=== PATIENT | male | born 1980 | race African-American/Black ===

== ENCOUNTER 2019-01-11 04:57 | Inpatient (IN) | payer SELFPAY ==
[2019-01-11] VITALS (7 sets, daily range): BP systolic 137–179; BP diastolic 87–101
[~2019-01-11] VITALS: Ht 185.4 cm; Wt 68.7 kg
[2019-01-11] MEDS ORDERED: METO50TA6 PO (09:23)
[2019-01-11] MEDS ORDERED: HYDR-2869 PO (09:23)
[2019-01-11] MEDS ORDERED: NICO1PAT21 TP (09:25)
--- NOTE | 2019-01-11 10:19 | PDOC1 ---
History and Physical Date of Admission Date of Admission DATE: 01/11/19 TIME: 10:18 Identification/Chief Complaint Chief Complaint Abdominal pain Source Source: Caregiver, Patient History of Present Illness History of Present Illness Mr Rowell is a 38 year old male w/ PMHx PCKD,HTN who presents with complaint of abdominal pain. Patient states that he has had severe recurrent left upper abdominal pain over the past 3 days. Was recently released from the hospital 5 days ago after being treated for hypertension and acute pancreatitis that began 2 weeks ago (5 days before he sought medical care). Notes that since his recent hospital stay, he has been getting worsening pain especially towards evening and his left upper quadrant which radiates towards his back. States it feels similar to the pain associated with his previous episode of acute pancreatitis. Cause of pancreatitis not identified a previous visit. Has not had any fever or vomiting. Has been taking Tylenol which has only briefly helped treat his pain symptoms. Has not missed any doses of his blood pressure medication. He did have a reaction to lisinopril with facial swelling on his prior hospital stay. 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 lipase level at 1715. Cr 1.5 (baseline 1.3), WBC 12.8. EKG Heart rate 56, sinus rhythm, normal intervals, normal axis, no acute ST/T-wa ve abnormalities present The patient was started on IV fluid, morphine, and Zofran. Blood pressure was initially treated with IV hydralazine. Blood pressure initially responded to hydralazine but really elevated to 190/106. Was treated next with oral cl onidine 0.2 mg. Again the patient responded slightly to the dose of clonidine but blood pressure return to critical levels. In ED, decision was made to initiate nicardipine drip, the patient's blood pressure has improved to 137/90 on 5 mg/hr. Once he received pain medication his BP dropped further and cardene was stopped. He is currently feeling like his pain is improved, but has no appetite. His mother is bedside. He works as a payer specialist, is single, smokes cigarettes. Denies any alcohol use. Uses marijuana regularly, otherwise uses no other drugs. No lipid studies on file. Past Medical History Cardiovascular: HTN Pulmonary: No pertinent hx GI: No pertinent hx Heme/Onc: No pertinent hx Hepatobiliary: No pertinent hx Psych: No pertinent hx Rheumatologic: No pertinent hx Infectious disease: No pertinent hx Renal/: Chronic renal insuff Endocrine: No pertinent hx Dermatology: No pertinent hx Past Surgical History Past Surgical History: No pertinent history Family History Family History: Hypertension Family History: Parent (Father - AD PCKD, HTN) Social History Smoke: 1 pack per day ALCOHOL: none Drugs: Marijuana Current Medications Current Medications Active Scripts Active Reported NICODERM CQ 21mg (Nicotine) 1 Each Patch.td24 1 Patch TP DAILY Metoprolol Tartrate 50 Mg Tablet 1 Tab PO BID Hydralazine Hcl 50 Mg Tablet 1 Tab PO TID ROS General: YES: Fatigue, Malaise, Appetite; No: Chills, Night Sweats, Other PSYCHOLOGICAL ROS: No: Anxiety, Behavioral Disorder, Concentration difficultie, Decreased libido, Depression, Disorientation, Hallucinations, Hostility, Irritablity, Memory difficulties, Mood Swings, Obsessive thoughts, Physical abuse, Sexual abuse, Sleep disturbances, Suicidal ideation, Other Eyes: No Blurry vision, No Decreased vision, No Double vision, No Dry eyes, No Excessive tearing, No Eye Pain, No Itchy Eyes, No Loss of vision, No Photophobia, No Scotomata, No Uses contacts, No Uses glasses, No Other HEENT: No: Heacaches, Visual Changes, Hearing change, Nasal congestion, Nasal discharge, Oral lesions, Sinus pain, Sore Throat, Epistaxis, Sneezing, Snoring, Tinnitus, Vertigo, Vocal changes, Other ALLERGY AND IMMUNOLOGY: No: Hives, Insect Bite Sensitivity, Itchy/Watery Eyes, Nasal Congestion, Post Nasal Drip, Seasonal Allergies, Other Hematological and Lymphatic: No: Bleeding Problems, Blood Clots, Blood Transfusions, Brusing, Night Sweats, Pallor, Swollen Lymph Nodes, Other ENDOCRINE: No: Breast Changes, Galactorrhea, Hair Pattern Changes, Hot Flashes, Malaise/lethargy, Mood Swings, Palpitations, Polydipsia/polyuria, Skin Changes, Temperature Intolerance, Unexpected Weight Changes, Other Breast: No New/Changing Breast Lumps, No Nipple changes, No Nipple discharge, No Other Respiratory: No: Cough, Hemoptysis, Orthopnea, Pleuritic Pain, Shortness of breath, SOB with excertion, Sputum Changes, Stridor, Tachypnea, Wheezing, Other Cardiovascular: No Chest Pain, No Palpitations, No Orthopnea, No Paroxysmal Noc. Dyspnea, No Edema, No Lt Headedness, No Other Gastrointestinal: Yes Nausea, Yes Vomiting, Yes Abdominal Pain; No Diarrhea, No Constipation, No Melena, No Hematochezia, No Other Genitourinary: No Dysuria, No Frequency, No Incontinence, No Hematuria, No Retention, No Discharge, No Urgency, No Pain, No Flank Pain, No Other, No , No , No , No , No , No , No Musculoskeletal: No Gait Disturbance, No Joint Pain, No Joint Stiffness, No Joint Swelling, No Muscle Pain, No Muscular Weakness, No Pain In:, No Swelling In:, No Other Neurological: No Behavorial Changes, No Bowel/Bladder ControlChng, No Confusion, No Dizziness, No Gait Disturbance, No Headaches, No Impaired Coord/balance, No Memory Loss, No Numbness/Tingling, No Seizures, No Speech Problems, No Tremors, No Visual Changes, No Weakness, No Other Skin: No Dry Skin, No Eczema, No Hair Changes, No Lumps, No Mole Changes, No Mottling, No Nail Changes, No Pruritus, No Rash, No Skin Lesion Changes, No Other, No Acne Physical Exam General: Alert, Oriented X3, Cooperative, No acute distress HEENT: Atraumatic, PERRLA, EOMI, Mucous membr. moist/pink, Other (Glasses in place) Lungs: Clear to auscultation, Normal air movement Heart: S1S2, RRR, no gallops, no murmurs Abdomen: Normal bowel sounds, Soft, No hepatosplenomegaly, No masses, Other (RUQ and LUQ tender) Male Genitals Exam: normal genitalia, normal prostate Rectal Exam: not examined Extremities: No clubbing, No cyanosis, No edema, Normal pulses, No tenderness/swelling Skin: No rashes, No breakdown, No significant lesion Neuro: Normal gait, Normal speech, Strength at 5/5 X4 ext, Normal tone, Sensation intact, Cranial nerves 3-12 NL, Reflexes 2+ Psych/Mental Status: Mental status NL, Mood NL Images Images CT abdomen/pelvis - FINDINGS: Lung windows through the visualized portions of the bases reveal no abnormality. Bone windows reveal no suspicious lesions. Small low-density foci within the pancreatic body and tail measure up to 1 cm and suggest dilated sidebranches for cysts. There is no clear peripancreatic inflammation. There are scattered subcentimeter cysts throughout the liver. Both kidneys are partially replaced by innumerable cysts consistent with autosomal dominant polycystic kidney disease. Some are hyperdense consistent with proteinaceous/inspissated contrast, as better demonstrated on the prior study. No clear solid lesions are seen. The adrenal glands, gallbladder and spleen are unremarkable. Stool throughout the colon is consistent with constipation. The appendix is not inflamed. There is no small bowel obstruction. There are no pathologically enlarged lymph nodes. IMPRESSION: 1. Moderate constipation. 2. No clear changes of pancreatitis by CT. 3. Small hypoattenuating foci within the pancreatic body and tail likely represent cysts in the setting of autosomal dominant polycystic kidney disease. MRCP with and without contrast could further evaluate if there is persistent concern. VTE Prophylaxis Ordered VTE Prophylaxis Devices: Yes VTE Pharmacological Prophylaxi: No Assessment/Plan Assessment/Plan A/P: Intractable nausea and vomiting - likely 2/2 pancreatitis, zofran helping Acute pancreatitis - etiology unclear, though PCKD and smoking status does increase his risk a bit. Non-drinker. Will check RUQ US, check Triglycerides, TSH. Consult GI Leukocytosis - likely 2/2 pancreatitis, no signs of necrosis. Will monitor as he does meet SIRS criteria I do not feel he is septic PCKD - his father had dx, he has been diagnosed, though he does not have insurance and has not seen nephrology or had HTN. HTN - no formal diagnosis. High risk with being and having PCKD he likely does have HTN. Lisinopril caused a bad reaction. Amlodipine may be a better choice for him. Treated for HTN urgency in ED, however with his pain controlled his BP has normalized Smoker - nicotine patch offered, counseled on cessation FEN - NPO PPX - SCDs FULL CODE Dispo - was initially admitted to ICU 2/2 uncontrolled HTN, ok to d/c telemetry and downgrade to med/surg. Likely 2 midnights. CARLOS NAVARRO MD Jan 11, 2019 10:18
[2019-01-11] MEDS ORDERED: BISACODYL 10 MG SUPP.RECT. PR PRN (10:30)
[2019-01-11] MEDS ORDERED: MORPHINE SULFATE 2 MG/ML VIAL. IV PRN (10:30)
[2019-01-11] MEDS ORDERED: oxyCODONE/APAP 5/325 1 TAB TABLET PO PRN (10:30)
[2019-01-11] MEDS ORDERED: ONDANSETRON PF 4 MG/2 ML VIAL. IV PRN (10:30)
[2019-01-11] MEDS ORDERED: NITROGLYCERIN OINT 1 GM PACKET. TP PRN (11:00)
--- NOTE | 2019-01-11 11:16 | RAD ---
Indication:Polycystic kidney disease. Pancreatitis. TECHNIQUE: Grayscale, color Doppler and spectral waveform is of the abdomen obtained. COMPARISON:None FINDINGS: Pancreas within normal limits. IVC is patent. No aortic aneurysm. Liver measures 15 cm in longest dimension and is normal in size and echogenicity. No gallstones, pericholecystic fluid or gallbladder wall thickening. CBD measures 4 mm in diameter and is within normal limits. Right kidney measures 14 cm in longest dimension and is mildly enlarged. Multiple cysts are seen in the right kidney, the largest measuring 2.4 cm. Spleen is unenlarged and measures 8.5 cm in longest dimension. Left kidney is mildly enlarged measuring 16 cm multiple cysts, the largest measuring 3 cm. IMPRESSION: 1. No cholelithiasis or sonographic evidence of acute cholecystitis. 2. Mildly enlarged bilateral kidneys with multiple cysts compatible with provided history of polycystic kidney disease. Electronically signed by: Alexis Melton DO (01/11/2019 11:13 AM) [facility]
[2019-01-11] MEDS: amLODIPine BESYLATE 5 MG TABLET PO SCH (12:05)
[2019-01-11] MEDS: NICOTINE 21MG PATCH. TD SCH (12:06)
[2019-01-11 12:28] LABS: CHOLESTEROL/HDL RATIO 2.9
--- NOTE | 2019-01-11 13:49 | PDOC2 ---
GI CONSULT Reason For Consult: Pancreatitis HPI: HPI: 38 y/o male transferred from [facility] where he was recently hospitalized for HTN, pancreatitis, and constipation. Reviewed past labs - lipase elevated off and on throughout this month - highest on 01/11 (1714). WBC mildly elevated then, Cr 1.5, and normal LFTs. Trigl ycerides normal today. on CT w/ IV contrast on 822: moderate constipation, no clear changed of pancreatitis, small hypoattenuating foci within the pancreatic body and tail (likely cysts). Records indicates previous CT showed mild inflammatory stranding surrounding the pancreatic tail. Ill w/ LUQ pain below ribs x 2-3 weeks. It comes and goes randomly and is not related to eating(has been eating 3 small meals daily). Not improved w/ Tylenol (was up to 10 daily at home) and prior to that he tried Aleve for about a week which was also unhelpful. He has associated burping and bloating. Denies reflux/heartburn, dysphagia, n/v (other notes mention this however), diarrhea, hematochezia, melena, and weight loss. Tells me that he hasn't had a "good" bowel movement in 2-3 weeks despite trying Dulcolax and Mag Citrate. No previous EGD or colonoscopy. No GB, pancreas, liver, or PUD history. PMH: PMH: polycystic kidney disease, HTN FH: Family History: Cancer (MGM - pancreatic cancer), Hypertension, Other (polycystic kidney disease) Social History: Smoke: 1 pack per day ALCOHOL: none Drugs: Marijuana ROS: GEN: Denies fevers, chills, sweats HEENT: Denies blurred vision, sore throat CV: Denies chest pain RESP: Denies shortness of air, cough GI: Per HPI : Denies hematuria, dysuria ENDO: Denies weight changes NEURO: Denies confusion, dizziness MSK: Denies weakness, joint pain/swelling SKIN: Denies jaundice, pruritus Vitals: Vitals: Vital Signs Date Time Temp Pulse Resp B/P (MAP) Pulse Ox O2 Delivery O2 Flow Rate FiO2 01/11/19 12:06 52 156/98 01/11/19 12:00 97.8 100 Room Air 97.8 01/11/19 09:00 18 Labs: Labs: Laboratory Tests Test 01/11/19 11:30 8/22/19 11:40 Triglycerides Level 92 mg/dL (0-150) Cholesterol Level 150 mg/dL (0-200) LDL Cholesterol, Calculated 81 mg/dL (0-100) VLDL Cholesterol, Calculated 18 mg/dL (0-40) Non-HDL Cholesterol Calculated 99 mg/dL (0-129) HDL Cholesterol 51 mg/dL (40-60) Cholesterol/HDL Ratio 2.9 Thyroid Stimulating Hormone (TSH) 1.286 uIU/mL (0.358-3.74) Allergies: Coded Allergies: lisinopril (Verified Allergy, Severe, lip swelling, 01/11/19) Medications: Current Medications Medications (Trade) Dose Ordered Sig/José Route PRN Reason Start Time Stop Time Status Last Admin Dose Admin Nicotine (Nicoderm Cq 21mg) 1 patch DAILY TD 01/11/19 11:00 01/11/19 12:06 Amlodipine Besylate (Norvasc) 5 mg DAILY PO 01/11/19 11:00 01/11/19 12:06 Imaging: Imaging: Abd US 01/11 IMPRESSION: 1. No cholelithiasis or sonographic evidence of acute cholecystitis. 2. Mildly enlarged bilateral kidneys with multiple cysts compatible with provided history of polycystic kidney disease. PE: GEN: NAD HEENT: Atraumatic, PERRL LUNGS: CTAB HEART: RRR ABD: NABS, S/ND, LUQ tenderness below rib EXTREMITY: No edema SKIN: No rashes, no jaundice NEURO/PSYCH: A & O �3 A/P: A/P: LUQ pain, belching, recent pancreatitis Leukocytosis Constipation Abnormal CT - small hypoattenuating foci within the pancreatic body and tail (likely cysts) CRC screen - average risk FH pancreatic cancer (MGM) HTN, PCKD -- US w/o gallstones. Denies alcohol use. ?MRCP Add acid-school bus mechanic. ?try clears later - will review w/ Dr. Ellis ?Relistor for constipation KELLEN-PITA BUTLER Jan 11, 2019 13:49
[2019-01-11] MEDS: IV NORMAL SALINE 1000ML BAG 1,000 ML IV SCH (14:38)
[2019-01-12 03:00] VITALS: BP 149/91
[2019-01-12] MEDS: IV NORMAL SALINE 1000ML BAG 1,000 ML IV SCH ×2 (05:05→17:25)
[2019-01-12 07:00] VITALS: BP 144/87
[2019-01-12] MEDS: PANTOPRAZOLE IV PUSH 40 MG VIAL. IVP SCH (07:28)
--- NOTE | 2019-01-12 08:17 | PDOC ---
PROGRESS NOTES History of Present Illness History of Present Illness VTE Prophylaxis Ordered VTE Prophylaxis Devices: Yes VTE Pharmacological Prophylaxi: No Assessment/Plan Assessment/Plan A/P: Intractable nausea and vomiting - likely 2/2 pancreatitis, Acute pancreatitis - etiology unclear, though PCKD and smoking status does increase his risk a bit. Non-drinker. Will check RUQ US, check Triglycerides, TSH. Consult GI Leukocytosis - likely 2/2 pancreatitis, no signs of necrosis. Will monitor as he does meet SIRS criteria I do not feel he is septic PCKD - his father had dx, he has been diagnosed, though he does not have insuran ce and has not seen nephrology or had HTN. HTN - no formal diagnosis. High risk with being and having PCKD he likely does have HTN. Lisinopril caused a bad reaction. Amlodipine may be a better choice for him. Treated for HTN urgency in ED, however with his pain controlled his BP has normalized Smoker - nicotine patch offered, counseled on cessation Pancreatitis, Pancreatic body and tail lesion too small to characterize. Differential diagnoses includes side branch intraductal papillary mucinous neoplasm or cysts. Follow-up MRI/MRCP in 6 months recommended. Bilateral polycystic kidneys. Some of the cysts a complicated with internal proteinaceous debris or blood products. plan -- MRCP and CA19-9 pending. FEN - NPO PPX - SCDs FULL CODE Dispo - was initially admitted to ICU 2/2 uncontrolled HTN, ok to d/c telemetry and downgrade to med/surg. Likely 2 midnights. UROLOGY CONSULT 38 min pt exam, chart review, > 50% of time spent with exam, chart review, pt care coordination Vitals Vitals Vital Signs Date Time Temp Pulse Resp B/P (MAP) Pulse Ox O2 Delivery O2 Flow Rate FiO2 01/12/19 03:39 14 Room Air 01/12/19 03:00 98.4 69 149/91 (110) 98 98.4 Physical Exam General: Alert, Oriented X3, Cooperative, No acute distress Heart: Regular rate, Normal S1, Normal S2 Lungs: Clear Abdomen: Normal bowel sounds, Soft, No hepatosplenomegaly, No masses, Other (RUQ and LUQ tender) Extremities: No clubbing, No cyanosis, No edema, Normal pulses, No tenderness/swelling Skin: No rashes, No breakdown, No significant lesion Labs LABS Indication: Pancreatitis. Evaluate pancreatic lesions seen on CT. TECHNIQUE: 3-D MRCP of the abdomen without IV contrast. MIP reformats were obtained. COMPARISON: CT abdomen pelvis from 01/11/2019. FINDINGS: Limited exam due to lack of IV contrast. Heart is normal in size. No pericardial or pleural effusion. Liver is normal in morphology without hepatic steatosis. 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 Spleen is unenlarged and shows no abnormal T2 signal. No gallstones, pericholecystic fluid. No intra or extrahepatic biliary duct dilation. Main pancreatic duct is not dilated. High intensity T2/low intensity T1 signal lesion is seen in the pancreatic tail measuring 7 mm in longest dimension. Another slightly high intensity T2 lesion measuring 5 mm is seen in the pancreatic body (series 5 image 16). Abdomen glands demonstrate no nodularity. Numerous bilateral high intensity T2/low intensity T1 signal lesions are seen in the kidneys compatible with simple cysts. There are multiple bilateral high intensity T1/low intensity T2 signal lesions in the bilateral kidneys. Visualized bowel demonstrates no evidence of obstruction. IMPRESSION: Limited exam due to lack of IV contrast. 1. Couple of pancreatic body and tail lesion too small to characterize. Differential diagnoses includes side branch intraductal papillary mucinous neoplasm or cysts. Follow-up MRI/MRCP in 6 months recommended. 2. Bilateral polycystic kidneys. Some of the cysts a complicated with internal proteinaceous debris or blood products. Evaluation of RCC is limited due to lack of IV contrast. Electronically signed by: Alexis Silva DO (01/12/2019 12:24 PM) [facility] DICTATED and SIGNED BY: ALEXIS SILVA DO DATE: 01/12/19 1224 Laboratory Tests Test 01/11/19 11:30 01/11/19 11:40 Triglycerides Level 92 mg/dL (0-150) Cholesterol Level 150 mg/dL (0-200) LDL Cholesterol, Calculated 81 mg/dL (0-100) VLDL Cholesterol, Calculated 18 mg/dL (0-40) Non-HDL Cholesterol Calculated 99 mg/dL (0-129) HDL Cholesterol 51 mg/dL (40-60) Cholesterol/HDL Ratio 2.9 Thyroid Stimulating Hormone (TSH) 1.286 uIU/mL (0.358-3.74) Comment Review of Relevant I have reviewed the following items chandler (where applicable) has been applied. Labs Laboratory Tests Test 01/11/19 11:30 01/11/19 11:40 Triglycerides Level 92 mg/dL (0-150) Cholesterol Level 150 mg/dL (0-200) LDL Cholesterol, Calculated 81 mg/dL (0-100) VLDL Cholesterol, Calculated 18 mg/dL (0-40) Non-HDL Cholesterol Calculated 99 mg/dL (0-129) HDL Cholesterol 51 mg/dL (40-60) Cholesterol/HDL Ratio 2.9 Thyroid Stimulating Hormone (TSH) 1.286 uIU/mL (0.358-3.74) Laboratory Tests Test 01/11/19 11:30 01/11/19 11:40 Triglycerides Level 92 mg/dL (0-150) Cholesterol Level 150 mg/dL (0-200) LDL Cholesterol, Calculated 81 mg/dL (0-100) VLDL Cholesterol, Calculated 18 mg/dL (0-40) Non-HDL Cholesterol Calculated 99 mg/dL (0-129) HDL Cholesterol 51 mg/dL (40-60) Cholesterol/HDL Ratio 2.9 Thyroid Stimulating Hormone (TSH) 1.286 uIU/mL (0.358-3.74) Medications Current Medications Hydralazine HCl (Apresoline) 50 mg TID PO Last administered on 01/11/19at 20:32; Start 01/11/19 at 14:00 Nicotine (Nicoderm Cq 21mg) 1 patch DAILY TD Last administered on 01/11/19at 12:06; Start 01/11/19 at 11:00 Ondansetron HCl (Zofran) 4 mg PRN Q6HRS PRN IV NAUSEA/VOMITING; Start 01/11/19 at 10:30 Morphine Sulfate (Morphine Sulfate) 2 mg PRN Q1HR PRN IV PAIN Last administered on 01/12/19at 01:13; Start 01/11/19 at 10:30 Oxycodone/ Acetaminophen (Percocet 5/325) 1 tab PRN Q4HRS PRN PO MILD PAIN, 1ST CHOICE; Start 01/11/19 at 10:30 Bisacodyl (Dulcolax Supp) 10 mg PRN DAILY PRN IN CONSTIPATION; Start 01/11/19 at 10:30 Amlodipine Besylate (Norvasc) 5 mg DAILY PO Last administered on 01/11/19at 12:06; Start 01/11/19 at 11:00 Nitroglycerin (Nitro-Bid Oint) 1 inch PRN Q6HRS PRN TP HTN, SBP >160; Start 01/11/19 at 11:00 Hydralazine HCl (Apresoline Inj) 10 mg PRN Q4HRS PRN IVP ELEVATED BP, SEE COMMENTS; Start 01/11/19 at 11:00 Pantoprazole Sodium (PROTONIX VIAL for IV PUSH) 40 mg DAILYAC IVP Last administered on 01/12/19at 07:28; Start 01/12/19 at 07:30 Sodium Chloride 1,000 ml @ 75 mls/hr [id number] IV Last administered on 01/12/19at 05:07; Start 01/11/19 at 14:45 Active Scripts Active Reported NICODERM CQ 21mg (Nicotine) 1 Each Patch.td24 1 Patch TP DAILY Metoprolol Tartrate 50 Mg Tablet 1 Tab PO BID Hydralazine Hcl 50 Mg Tablet 1 Tab PO TID Vitals/I & O Vital Sign - Last 24 Hours 01/11/19 01/11/19 01/11/19 01/11/19 09:00 09:00 10:00 11:00 Temp 97.8 97.8 Pulse 50 52 50 Resp 18 16 B/P (MAP) 157/87 (110) 151/95 (113) 137/87 (104) Pulse Ox 100 100 100 O2 Delivery Room Air Room Air Room Air Room Air 01/11/19 01/11/19 01/11/19 01/11/19 12:00 12:06 14:00 14:38 Temp 97.8 97.8 Pulse 54 52 55 52 Resp 20 B/P (MAP) 156/98 (117) 156/98 144/88 (106) 165/100 Pulse Ox 100 100 O2 Delivery Room Air Room Air 01/11/19 01/11/19 01/11/19 01/11/19 19:00 20:00 20:32 23:00 Temp 98.1 98.5 98.1 98.5 Pulse 61 61 73 B/P (MAP) 179/101 (127) 179/101 149/101 (117) Pulse Ox 99 99 O2 Delivery Room Air Room Air Room Air 01/12/19 01/12/19 01/12/19 01:13 03:00 03:39 Temp 98.4 98.4 Pulse 69 Resp 18 14 B/P (MAP) 149/91 (110) Pulse Ox 98 O2 Delivery Room Air Room Air Room Air Intake and Output 01/11/19 01/11/19 01/12/19 15:00 23:00 07:00 Intake Total 630 ml Output Total 700 ml 0 ml Balance -70 ml 0 ml FERDINAND GARRETT MD Jan 12, 2019 08:17
[2019-01-12] MEDS: amLODIPine BESYLATE 5 MG TABLET PO SCH (08:18)
--- NOTE | 2019-01-12 08:53 | NUR ---
SS following for discharge planning. SS reviewed pt chart. Pt is self pay pt. HCFS following for self pay status. Pt is from home and is currently on room air. No discharge needs noted at this time. SS will continue to follow for discharge planning.
[2019-01-12] MEDS: NICOTINE 21MG PATCH. TD SCH (09:08)
--- NOTE | 2019-01-12 10:54 | PDOC ---
Subjective: Subjective: LUQ pain is about a 2 - not much better. Tried a sip of water earlier and it got worse. No stool. Objective: Vital Signs: Vital Signs Date Time Temp Pulse Resp B/P (MAP) Pulse Ox O2 Delivery O2 Flow Rate FiO2 01/12/19 08:00 Room Air 01/12/19 07:00 97.9 68 18 144/87 (106) 99 97.9 Labs: Laboratory Tests Test 01/11/19 11:30 01/11/19 11:40 01/12/19 08:24 Triglycerides Level 92 mg/dL Cholesterol Level 150 mg/dL LDL Cholesterol, Calculated 81 mg/dL VLDL Cholesterol, Calculated 18 mg/dL Non-HDL Cholesterol Calculated 99 mg/dL HDL Cholesterol 51 mg/dL Cholesterol/HDL Ratio 2.9 Thyroid Stimulating Hormone (TSH) 1.286 uIU/mL Lipase 1097 U/L Imaging: MRCP pending PE: GEN: NAD LUNGS: CTAB HEART: RRR ABD: NABS, soft, LUQ tenderness NEURO/PSYCH: A & O �3, flat A/P: Pancreatitis, PCKD -- MRCP and CA19-9 pending. Water didn't go well earlier, would keep NPO for now. PITA VANN Jan 12, 2019 10:54
[2019-01-12 11:00] VITALS: BP 168/102
--- NOTE | 2019-01-12 12:27 | RAD ---
Indication: Pancreatitis. Evaluate pancreatic lesions seen on CT. TECHNIQUE: 3-D MRCP of the abdomen without IV contrast. MIP reformats were obtained. COMPARISON: CT abdomen pelvis from 01/11/2019. FINDINGS: Limited exam due to lack of IV contrast. Heart is normal in size. No pericardial or pleural effusion. Liver is normal in morphology without hepatic steatosis. 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 Spleen is unenlarged and shows no abnormal T2 signal. No gallstones, pericholecystic fluid. No intra or extrahepatic biliary duct dilation. Main pancreatic duct is not dilated. High intensity T2/low intensity T1 signal lesion is seen in the pancreatic tail measuring 7 mm in longest dimension. Another slightly high intensity T2 lesion measuring 5 mm is seen in the pancreatic body (series 5 image 16). Abdomen glands demonstrate no nodularity. Numerous bilateral high intensity T2/low intensity T1 signal lesions are seen in the kidneys compatible with simple cysts. There are multiple bilateral high intensity T1/low intensity T2 signal lesions in the bilateral kidneys. Visualized bowel demonstrates no evidence of obstruction. IMPRESSION: Limited exam due to lack of IV contrast. 1. Couple of pancreatic body and tail lesion too small to characterize. Differential diagnoses includes side branch intraductal papillary mucinous neoplasm or cysts. Follow-up MRI/MRCP in 6 months recommended. 2. Bilateral polycystic kidneys. Some of the cysts a complicated with internal proteinaceous debris or blood products. Evaluation of RCC is limited due to lack of IV contrast. Electronically signed by: Alexis Melton DO (01/12/2019 12:24 PM) [facility]
[2019-01-12 13:21] LABS: BASO # 0.1 x10^3/uL (0.0-0.2); BASO % 1 % (0-3); EOS # 0.3 x10^3/uL (0.0-0.7); EOS % 3 % (0-3); HEMATOCRIT 42.8 % (39.0-53.0); HEMOGLOBIN 14.3 g/dL (13.0-17.5); LYMPH # 3.3 x10^3/uL (1.0-4.8); LYMPH % 32 % (24-48); MEAN CORPUSCULAR HEMOGLOBIN 33 pg (25-35); MEAN CORPUSCULAR HGB CONC 33 g/dL (31-37); MEAN CORPUSCULAR VOLUME 100 fL (79-100); MONO # 0.5 x10^3/uL (0.0-1.1); MONO % 5 % (0-9); NEUT # 6.1 x10^3/uL (1.8-7.7); NEUT % 59 % (31-73); PLATELET COUNT 261 x10^3/uL (140-400); RED BLOOD COUNT 4.28 x10^6/uL (4.30-5.70); RED CELL DISTRIBUTION WIDTH 13.2 % (11.5-14.5); WHITE BLOOD COUNT 10.4 x10^3/uL (4.0-11.0)
[2019-01-12 13:29] LABS: ALBUMIN 3.5 g/dL (3.4-5.0); CALCIUM 8.8 mg/dL (8.5-10.1); CREATININE 1.3 mg/dL (0.7-1.3); TOTAL BILIRUBIN 0.5 mg/dL (0.2-1.0)
[2019-01-12 14:12] LABS: BILIRUBIN,URINE NEGATIVE (NEG); CLARITY,URINE CLEAR; COLOR,URINE YELLOW; NITRITE,URINE NEGATIVE (NEG); PROTEIN,URINE NEGATIVE (NEG-TRACE)
[2019-01-12 14:28] LABS: BACTERIA,URINE 0 /HPF (0-FEW); SQUAMOUS EPITHELIAL CELL,UR OCC /LPF; WBC,URINE OCC /HPF (0-4)
[2019-01-12 15:00] VITALS: BP 173/103
[2019-01-12] MEDS: hydrALAZINE 20 MG/ML VIAL. IVP PRN ×2 (15:17→23:39)
[2019-01-12 19:00] VITALS: BP 190/100
[2019-01-12 23:00] VITALS: BP 171/99
[2019-01-13 02:41] VITALS: BP 164/103
[2019-01-13] MEDS: PANTOPRAZOLE IV PUSH 40 MG VIAL. IVP SCH (05:55)
[2019-01-13] MEDS: hydrALAZINE 20 MG/ML VIAL. IVP PRN (05:56)
[2019-01-13] MEDS: IV NORMAL SALINE 1000ML BAG 1,000 ML IV SCH ×2 (05:56→20:05)
[2019-01-13 06:04] LABS: ALBUMIN 3.3 g/dL (3.4-5.0); CALCIUM 8.9 mg/dL (8.5-10.1); CREATININE 1.2 mg/dL (0.7-1.3); GFR 81.1; TOTAL BILIRUBIN 0.6 mg/dL (0.2-1.0); TOTAL PROTEIN 6.7 g/dL (6.4-8.2)
[2019-01-13 07:00] VITALS: BP 165/92
--- NOTE | 2019-01-13 07:43 | PDOC ---
PROGRESS NOTES History of Present Illness History of Present Illness VTE Prophylaxis Ordered VTE Prophylaxis Devices: Yes VTE Pharmacological Prophylaxi: No Assessment/Plan Assessment/Plan A/P: Intractable nausea and vomiting - likely 2/2 pancreatitis, Acute pancreatitis - etiology unclear, though PCKD and smoking status does increase his risk a bit. Non-drinker. Will check RUQ US, check Triglycerides, TSH. Consult GI Leukocytosis - likely 2/2 pancreatitis, no signs of necrosis. Will monitor as he does meet SIRS criteria I do not feel he is septic PCKD - his father had dx, he has been diagnosed, though he does not have insuran ce and has not seen nephrology or had HTN. HTN - no formal diagnosis. High risk with being and having PCKD he likely does have HTN. Lisinopril caused a bad reaction. Amlodipine may be a better choice for him. Treated for HTN urgency in ED, however with his pain controlled his BP has normalized Smoker - nicotine patch offered, counseled on cessation Pancreatitis, Pancreatic body and tail lesion too small to characterize. Differential diagnoses includes side branch intraductal papillary mucinous neoplasm or cysts. Follow-up MRI/MRCP in 6 months recommended. Bilateral polycystic kidneys. Some of the cysts a complicated with internal proteinaceous debris or blood products. hypertension, uncontrolled plan -- MRCP and CA19-9 pending. FEN - NPO PPX - SCDs FULL CODE Dispo - was initially admitted to ICU 2/2 uncontrolled HTN, ok to d/c telemetry and downgrade to med/surg. Likely 2 midnights. UROLOGY CONSULT inc norvasc to 5 mg bid 28 min pt exam, chart review, > 50% of time spent with exam, chart review, pt care coordination Vitals Vitals Vital Signs Date Time Temp Pulse Resp B/P (MAP) Pulse Ox O2 Delivery O2 Flow Rate FiO2 01/13/19 07:00 98.1 82 18 165/92 (116) 99 Room Air 98.1 Physical Exam General: Alert, Oriented X3, Cooperative, No acute distress Heart: Regular rate, Normal S1, Normal S2 Lungs: Clear Abdomen: Normal bowel sounds, Soft, No hepatosplenomegaly, No masses, Other (RUQ and LUQ tender) Extremities: No clubbing, No cyanosis, No edema, Normal pulses, No tenderness/swelling Skin: No rashes, No breakdown, No significant lesion Labs LABS Laboratory Tests Test 01/12/19 08:24 01/12/19 13:40 01/13/19 05:25 White Blood Count 10.4 x10^3/uL (4.0-11.0) Red Blood Count 4.28 x10^6/uL (4.30-5.70) Hemoglobin 14.3 g/dL (13.0-17.5) Hematocrit 42.8 % (39.0-53.0) Mean Corpuscular Volume 100 fL (79-100) Mean Corpuscular Hemoglobin 33 pg (25-35) Mean Corpuscular Hemoglobin Concent 33 g/dL (31-37) Red Cell Distribution Width 13.2 % (11.5-14.5) Platelet Count 261 x10^3/uL (140-400) Neutrophils (%) (Auto) 59 % (31-73) Lymphocytes (%) (Auto) 32 % (24-48) Monocytes (%) (Auto) 5 % (0-9) Eosinophils (%) (Auto) 3 % (0-3) Basophils (%) (Auto) 1 % (0-3) Neutrophils # (Auto) 6.1 x10^3/uL (1.8-7.7) Lymphocytes # (Auto) 3.3 x10^3/uL (1.0-4.8) Monocytes # (Auto) 0.5 x10^3/uL (0.0-1.1) Eosinophils # (Auto) 0.3 x10^3/uL (0.0-0.7) Basophils # (Auto) 0.1 x10^3/uL (0.0-0.2) Sodium Level 140 mmol/L (136-145) 141 mmol/L (136-145) Potassium Level 4.0 mmol/L (3.5-5.1) 4.0 mmol/L (3.5-5.1) Chloride Level 104 mmol/L (98-107) 106 mmol/L (98-107) Carbon Dioxide Level 21 mmol/L (21-32) 23 mmol/L (21-32) Anion Gap 15 (6-14) 12 (6-14) Blood Urea Nitrogen 19 mg/dL (8-26) 17 mg/dL (8-26) Creatinine 1.3 mg/dL (0.7-1.3) 1.2 mg/dL (0.7-1.3) Estimated GFR (Cockcroft-Gault) 74.0 81.1 BUN/Creatinine Ratio 15 (6-20) 14 (6-20) Glucose Level 65 mg/dL (70-99) 75 mg/dL (70-99) Calcium Level 8.8 mg/dL (8.5-10.1) 8.9 mg/dL (8.5-10.1) Total Bilirubin 0.5 mg/dL (0.2-1.0) 0.6 mg/dL (0.2-1.0) Aspartate Amino Transf (AST/SGOT) 17 U/L (15-37) 16 U/L (15-37) Alanine Aminotransferase (ALT/SGPT) 18 U/L (16-63) 14 U/L (16-63) Alkaline Phosphatase 68 U/L (46-116) 71 U/L (46-116) Total Protein 7.0 g/dL (6.4-8.2) 6.7 g/dL (6.4-8.2) Albumin 3.5 g/dL (3.4-5.0) 3.3 g/dL (3.4-5.0) Albumin/Globulin Ratio 1.0 (1.0-1.7) 1.0 (1.0-1.7) Lipase 1097 U/L (73-393) 962 U/L (73-393) Urine Collection Type Unknown Urine Color Yellow Urine Clarity Clear Urine pH 5.0 Urine Specific [place] 1.020 Urine Protein Negative mg/dL (NEG-TRACE) Urine Glucose (UA) Negative mg/dL (NEG) Urine Ketones (Stick) 40 mg/dL (NEG) Urine Blood Negative (NEG) Urine Nitrite Negative (NEG) Urine Bilirubin Negative (NEG) Urine Urobilinogen Dipstick 1.0 mg/dL (0.2 mg/dL) Urine Leukocyte Esterase Negative (NEG) Urine RBC 1-2 /HPF (0-2) Urine WBC Occ /HPF (0-4) Urine Squamous Epithelial Cells Occ /LPF Urine Bacteria 0 /HPF (0-FEW) Urine Mucus Marked /LPF Comment Review of Relevant I have reviewed the following items chandler (where applicable) has been applied. Labs Laboratory Tests Test 01/11/19 11:30 01/11/19 11:40 8/23/19 08:24 01/12/19 13:40 Triglycerides Level 92 mg/dL (0-150) Cholesterol Level 150 mg/dL (0-200) LDL Cholesterol, Calculated 81 mg/dL (0-100) VLDL Cholesterol, Calculated 18 mg/dL (0-40) Non-HDL Cholesterol Calculated 99 mg/dL (0-129) HDL Cholesterol 51 mg/dL (40-60) Cholesterol/HDL Ratio 2.9 Thyroid Stimulating Hormone (TSH) 1.286 uIU/mL (0.358-3.74) White Blood Count 10.4 x10^3/uL (4.0-11.0) Red Blood Count 4.28 x10^6/uL (4.30-5.70) Hemoglobin 14.3 g/dL (13.0-17.5) Hematocrit 42.8 % (39.0-53.0) Mean Corpuscular Volume 100 fL (79-100) Mean Corpuscular Hemoglobin 33 pg (25-35) Mean Corpuscular Hemoglobin Concent 33 g/dL (31-37) Red Cell Distribution Width 13.2 % (11.5-14.5) Platelet Count 261 x10^3/uL (140-400) Neutrophils (%) (Auto) 59 % (31-73) Lymphocytes (%) (Auto) 32 % (24-48) Monocytes (%) (Auto) 5 % (0-9) Eosinophils (%) (Auto) 3 % (0-3) Basophils (%) (Auto) 1 % (0-3) Neutrophils # (Auto) 6.1 x10^3/uL (1.8-7.7) Lymphocytes # (Auto) 3.3 x10^3/uL (1.0-4.8) Monocytes # (Auto) 0.5 x10^3/uL (0.0-1.1) Eosinophils # (Auto) 0.3 x10^3/uL (0.0-0.7) Basophils # (Auto) 0.1 x10^3/uL (0.0-0.2) Sodium Level 140 mmol/L (136-145) Potassium Level 4.0 mmol/L (3.5-5.1) Chloride Level 104 mmol/L (98-107) Carbon Dioxide Level 21 mmol/L (21-32) Anion Gap 15 (6-14) Blood Urea Nitrogen 19 mg/dL (8-26) Creatinine 1.3 mg/dL (0.7-1.3) Estimated GFR (Cockcroft-Gault) 74.0 BUN/Creatinine Ratio 15 (6-20) Glucose Level 65 mg/dL (70-99) Calcium Level 8.8 mg/dL (8.5-10.1) Total Bilirubin 0.5 mg/dL (0.2-1.0) Aspartate Amino Transf (AST/SGOT) 17 U/L (15-37) Alanine Aminotransferase (ALT/SGPT) 18 U/L (16-63) Alkaline Phosphatase 68 U/L (46-116) Total Protein 7.0 g/dL (6.4-8.2) Albumin 3.5 g/dL (3.4-5.0) Albumin/Globulin Ratio 1.0 (1.0-1.7) Lipase 1097 U/L (73-393) Urine Collection Type Unknown Urine Color Yellow Urine Clarity Clear Urine pH 5.0 Urine Specific [place] 1.020 Urine Protein Negative mg/dL (NEG-TRACE) Urine Glucose (UA) Negative mg/dL (NEG) Urine Ketones (Stick) 40 mg/dL (NEG) Urine Blood Negative (NEG) Urine Nitrite Negative (NEG) Urine Bilirubin Negative (NEG) Urine Urobilinogen Dipstick 1.0 mg/dL (0.2 mg/dL) Urine Leukocyte Esterase Negative (NEG) Urine RBC 1-2 /HPF (0-2) Urine WBC Occ /HPF (0-4) Urine Squamous Epithelial Cells Occ /LPF Urine Bacteria 0 /HPF (0-FEW) Urine Mucus Marked /LPF Test 01/13/19 05:25 Sodium Level 141 mmol/L (136-145) Potassium Level 4.0 mmol/L (3.5-5.1) Chloride Level 106 mmol/L (98-107) Carbon Dioxide Level 23 mmol/L (21-32) Anion Gap 12 (6-14) Blood Urea Nitrogen 17 mg/dL (8-26) Creatinine 1.2 mg/dL (0.7-1.3) Estimated GFR (Cockcroft-Gault) 81.1 BUN/Creatinine Ratio 14 (6-20) Glucose Level 75 mg/dL (70-99) Calcium Level 8.9 mg/dL (8.5-10.1) Total Bilirubin 0.6 mg/dL (0.2-1.0) Aspartate Amino Transf (AST/SGOT) 16 U/L (15-37) Alanine Aminotransferase (ALT/SGPT) 14 U/L (16-63) Alkaline Phosphatase 71 U/L (46-116) Total Protein 6.7 g/dL (6.4-8.2) Albumin 3.3 g/dL (3.4-5.0) Albumin/Globulin Ratio 1.0 (1.0-1.7) Lipase 962 U/L (73-393) Laboratory Tests Test 01/12/19 08:24 01/12/19 13:40 01/13/19 05:25 White Blood Count 10.4 x10^3/uL (4.0-11.0) Red Blood Count 4.28 x10^6/uL (4.30-5.70) Hemoglobin 14.3 g/dL (13.0-17.5) Hematocrit 42.8 % (39.0-53.0) Mean Corpuscular Volume 100 fL (79-100) Mean Corpuscular Hemoglobin 33 pg (25-35) Mean Corpuscular Hemoglobin Concent 33 g/dL (31-37) Red Cell Distribution Width 13.2 % (11.5-14.5) Platelet Count 261 x10^3/uL (140-400) Neutrophils (%) (Auto) 59 % (31-73) Lymphocytes (%) (Auto) 32 % (24-48) Monocytes (%) (Auto) 5 % (0-9) Eosinophils (%) (Auto) 3 % (0-3) Basophils (%) (Auto) 1 % (0-3) Neutrophils # (Auto) 6.1 x10^3/uL (1.8-7.7) Lymphocytes # (Auto) 3.3 x10^3/uL (1.0-4.8) Monocytes # (Auto) 0.5 x10^3/uL (0.0-1.1) Eosinophils # (Auto) 0.3 x10^3/uL (0.0-0.7) Basophils # (Auto) 0.1 x10^3/uL (0.0-0.2) Sodium Level 140 mmol/L (136-145) 141 mmol/L (136-145) Potassium Level 4.0 mmol/L (3.5-5.1) 4.0 mmol/L (3.5-5.1) Chloride Level 104 mmol/L (98-107) 106 mmol/L (98-107) Carbon Dioxide Level 21 mmol/L (21-32) 23 mmol/L (21-32) Anion Gap 15 (6-14) 12 (6-14) Blood Urea Nitrogen 19 mg/dL (8-26) 17 mg/dL (8-26) Creatinine 1.3 mg/dL (0.7-1.3) 1.2 mg/dL (0.7-1.3) Estimated GFR (Cockcroft-Gault) 74.0 81.1 BUN/Creatinine Ratio 15 (6-20) 14 (6-20) Glucose Level 65 mg/dL (70-99) 75 mg/dL (70-99) Calcium Level 8.8 mg/dL (8.5-10.1) 8.9 mg/dL (8.5-10.1) Total Bilirubin 0.5 mg/dL (0.2-1.0) 0.6 mg/dL (0.2-1.0) Aspartate Amino Transf (AST/SGOT) 17 U/L (15-37) 16 U/L (15-37) Alanine Aminotransferase (ALT/SGPT) 18 U/L (16-63) 14 U/L (16-63) Alkaline Phosphatase 68 U/L (46-116) 71 U/L (46-116) Total Protein 7.0 g/dL (6.4-8.2) 6.7 g/dL (6.4-8.2) Albumin 3.5 g/dL (3.4-5.0) 3.3 g/dL (3.4-5.0) Albumin/Globulin Ratio 1.0 (1.0-1.7) 1.0 (1.0-1.7) Lipase 1097 U/L (73-393) 962 U/L (73-393) Urine Collection Type Unknown Urine Color Yellow Urine Clarity Clear Urine pH 5.0 Urine Specific [place] 1.020 Urine Protein Negative mg/dL (NEG-TRACE) Urine Glucose (UA) Negative mg/dL (NEG) Urine Ketones (Stick) 40 mg/dL (NEG) Urine Blood Negative (NEG) Urine Nitrite Negative (NEG) Urine Bilirubin Negative (NEG) Urine Urobilinogen Dipstick 1.0 mg/dL (0.2 mg/dL) Urine Leukocyte Esterase Negative (NEG) Urine RBC 1-2 /HPF (0-2) Urine WBC Occ /HPF (0-4) Urine Squamous Epithelial Cells Occ /LPF Urine Bacteria 0 /HPF (0-FEW) Urine Mucus Marked /LPF Medications Current Medications Hydralazine HCl (Apresoline) 50 mg TID PO Last administered on 01/12/19at 20:44; Start 01/11/19 at 14:00 Nicotine (Nicoderm Cq 21mg) 1 patch DAILY TD Last administered on 01/12/19at 09:09; Start 01/11/19 at 11:00 Ondansetron HCl (Zofran) 4 mg PRN Q6HRS PRN IV NAUSEA/VOMITING; Start 01/11/19 at 10:30 Morphine Sulfate (Morphine Sulfate) 2 mg PRN Q1HR PRN IV PAIN Last administered on 01/12/19at 01:13; Start 01/11/19 at 10:30 Oxycodone/ Acetaminophen (Percocet 5/325) 1 tab PRN Q4HRS PRN PO MILD PAIN, 1ST CHOICE; Start 01/11/19 at 10:30 Bisacodyl (Dulcolax Supp) 10 mg PRN DAILY PRN AR CONSTIPATION; Start 01/11/19 at 10:30 Amlodipine Besylate (Norvasc) 5 mg DAILY PO Last administered on 01/11/19at 12:06; Start 01/11/19 at 11:00 Nitroglycerin (Nitro-Bid Oint) 1 inch PRN Q6HRS PRN TP HTN, SBP >160 2ND CHOICE; Start 01/11/19 at 11:00 Hydralazine HCl (Apresoline Inj) 10 mg PRN Q4HRS PRN IVP ELEVATED BP, 1ST CHOICE Last administered on 01/13/19at 05:56; Start 01/11/19 at 11:00 Pantoprazole Sodium (PROTONIX VIAL for IV PUSH) 40 mg DAILYAC IVP Last administered on 01/13/19at 05:56; Start 01/12/19 at 07:30 Sodium Chloride 1,000 ml @ 75 mls/hr [id number] IV Last administered on 01/13/19at 05:56; Start 01/11/19 at 14:45 Active Scripts Active Reported NICODERM CQ 21mg (Nicotine) 1 Each Patch.td24 1 Patch TP DAILY Metoprolol Tartrate 50 Mg Tablet 1 Tab PO BID Hydralazine Hcl 50 Mg Tablet 1 Tab PO TID Vitals/I & O Vital Sign - Last 24 Hours 01/12/19 01/12/19 01/12/19 01/12/19 08:00 11:00 15:00 15:17 Temp 97.7 98.7 97.7 98.7 Pulse 58 66 64 Resp 18 20 B/P (MAP) 168/102 (124) 173/103 (126) 172/102 Pulse Ox 99 99 O2 Delivery Room Air Room Air Room Air 01/12/19 01/12/19 01/12/19 01/12/19 19:00 20:00 20:44 23:00 Temp 97.8 97.6 97.8 97.6 Pulse 63 63 71 Resp 18 18 B/P (MAP) 190/100 (130) 190/100 171/99 (123) Pulse Ox 98 99 O2 Delivery Room Air Room Air Room Air 01/12/19 01/13/19 01/13/19 01/13/19 23:39 02:41 05:56 07:00 Temp 98.6 98.1 98.6 98.1 Pulse 88 76 82 Resp 18 18 B/P (MAP) 177/110 164/103 (123) 160/98 165/92 (116) Pulse Ox 97 99 O2 Delivery Room Air Room Air Intake and Output 01/12/19 01/12/19 01/13/19 14:59 22:59 06:59 Intake Total 300 ml 150 ml Balance 300 ml 150 ml FERDINAND GARRETT MD Jan 13, 2019 07:43
[2019-01-13] MEDS: NICOTINE 21MG PATCH. TD SCH (08:57)
[2019-01-13] MEDS: amLODIPine BESYLATE 5 MG TABLET PO SCH ×2 (08:58→21:31)
[2019-01-13] MEDS ORDERED: amLODIPine BESYLATE 5 MG TABLET PO SCH (10:30)
[2019-01-13 11:00] VITALS: BP 158/89
[2019-01-13 15:00] VITALS: BP 166/99
[2019-01-13 19:25] VITALS: BP 177/101
[2019-01-13 23:35] VITALS: BP 182/110
[2019-01-14 03:00] VITALS: BP 150/99
[2019-01-14 05:52] LABS: CALCIUM 9.2 mg/dL (8.5-10.1); CREATININE 1.2 mg/dL (0.7-1.3); GFR 81.1
[2019-01-14 06:36] LABS: BASO # 0.1 x10^3/uL (0.0-0.2); BASO % 1 % (0-3); EOS # 0.3 x10^3/uL (0.0-0.7); EOS % 3 % (0-3); HEMATOCRIT 40.9 % (39.0-53.0); HEMOGLOBIN 13.8 g/dL (13.0-17.5); LYMPH % 35 % (24-48); MEAN CORPUSCULAR HEMOGLOBIN 34 pg (25-35); MEAN CORPUSCULAR HGB CONC 34 g/dL (31-37); MEAN CORPUSCULAR VOLUME 99 fL (79-100); MONO # 0.6 x10^3/uL (0.0-1.1); MONO % 7 % (0-9); NEUT # 4.6 x10^3/uL (1.8-7.7); NEUT % 54 % (31-73); PLATELET COUNT 241 x10^3/uL (140-400); RED BLOOD COUNT 4.14 x10^6/uL (4.30-5.70); WHITE BLOOD COUNT 8.6 x10^3/uL (4.0-11.0)
[2019-01-14 07:00] VITALS: BP 164/100
[2019-01-14] MEDS: PANTOPRAZOLE 40 MG TABLET.DR. PO SCH (08:23)
[2019-01-14] MEDS: amLODIPine BESYLATE 5 MG TABLET PO SCH ×2 (08:23→21:44)
[2019-01-14] MEDS: NICOTINE 21MG PATCH. TD SCH (08:24)
[2019-01-14] MEDS: hydrALAZINE 20 MG/ML VIAL. IVP PRN (08:25)
[2019-01-14] MEDS: IV NORMAL SALINE 1000ML BAG 1,000 ML IV SCH ×2 (09:25→22:45)
[2019-01-14 11:00] VITALS: BP 161/98
--- NOTE | 2019-01-14 11:07 | PDOC ---
PROGRESS NOTES History of Present Illness History of Present Illness VTE Prophylaxis Ordered VTE Prophylaxis Devices: Yes VTE Pharmacological Prophylaxi: No Assessment/Plan Assessment/Plan A/P: Intractable nausea and vomiting - likely 2/2 pancreatitis, Acute pancreatitis - etiology unclear, though PCKD and smoking status does increase his risk a bit. Non-drinker. Will check RUQ US, check Triglycerides, TSH. Consult GI Leukocytosis - likely 2/2 pancreatitis, no signs of necrosis. Will monitor as he does meet SIRS criteria I do not feel he is septic PCKD - his father had dx, he has been diagnosed, though he does not have insuran ce and has not seen nephrology or had HTN. HTN - no formal diagnosis. High risk with being and having PCKD he likely does have HTN. Lisinopril caused a bad reaction. Amlodipine may be a better choice for him. Treated for HTN urgency in ED, however with his pain controlled his BP has normalized Smoker - nicotine patch offered, counseled on cessation Pancreatitis, Pancreatic body and tail lesion too small to characterize. Differential diagnoses includes side branch intraductal papillary mucinous neoplasm or cysts. Follow-up MRI/MRCP in 6 months recommended. Bilateral polycystic kidneys. Some of the cysts a complicated with internal proteinaceous debris or blood products. hypertension, uncontrolled plan -- MRCP and CA19-9 pending. FEN - NPO PPX - SCDs FULL CODE Dispo - was initially admitted to ICU 2/2 uncontrolled HTN, ok to d/c telemetry and downgrade to med/surg. Likely 2 midnights. UROLOGY CONSULT inc norvasc to 5 mg bid 28 min pt exam, chart review, > 50% of time spent with exam, chart review, pt care coordination Vitals Vitals Vital Signs Date Time Temp Pulse Resp B/P (MAP) Pulse Ox O2 Delivery O2 Flow Rate FiO2 01/14/19 10:50 16 Room Air 01/14/19 08:25 67 164/100 01/14/19 07:00 97.6 97 97.6 Physical Exam General: Alert, Oriented X3, Cooperative, No acute distress Heart: Regular rate, Normal S1, Normal S2 Lungs: Clear Abdomen: Normal bowel sounds, Soft, No hepatosplenomegaly, No masses, Other (RUQ and LUQ tender) Extremities: No clubbing, No cyanosis, No edema, Normal pulses, No tenderness/swelling Skin: No rashes, No breakdown, No significant lesion Labs LABS Laboratory Tests Test 01/14/19 05:05 White Blood Count 8.6 x10^3/uL (4.0-11.0) Red Blood Count 4.14 x10^6/uL (4.30-5.70) Hemoglobin 13.8 g/dL (13.0-17.5) Hematocrit 40.9 % (39.0-53.0) Mean Corpuscular Volume 99 fL (79-100) Mean Corpuscular Hemoglobin 34 pg (25-35) Mean Corpuscular Hemoglobin Concent 34 g/dL (31-37) Red Cell Distribution Width 13.0 % (11.5-14.5) Platelet Count 241 x10^3/uL (140-400) Neutrophils (%) (Auto) 54 % (31-73) Lymphocytes (%) (Auto) 35 % (24-48) Monocytes (%) (Auto) 7 % (0-9) Eosinophils (%) (Auto) 3 % (0-3) Basophils (%) (Auto) 1 % (0-3) Neutrophils # (Auto) 4.6 x10^3/uL (1.8-7.7) Lymphocytes # (Auto) 3.0 x10^3/uL (1.0-4.8) Monocytes # (Auto) 0.6 x10^3/uL (0.0-1.1) Eosinophils # (Auto) 0.3 x10^3/uL (0.0-0.7) Basophils # (Auto) 0.1 x10^3/uL (0.0-0.2) Sodium Level 142 mmol/L (136-145) Potassium Level 4.0 mmol/L (3.5-5.1) Chloride Level 107 mmol/L (98-107) Carbon Dioxide Level 24 mmol/L (21-32) Anion Gap 11 (6-14) Blood Urea Nitrogen 14 mg/dL (8-26) Creatinine 1.2 mg/dL (0.7-1.3) Estimated GFR (Cockcroft-Gault) 81.1 Glucose Level 112 mg/dL (70-99) Calcium Level 9.2 mg/dL (8.5-10.1) Lipase 1395 U/L (73-393) Comment Review of Relevant I have reviewed the following items chandler (where applicable) has been applied. Labs Laboratory Tests Test 01/12/19 13:40 01/13/19 05:25 01/14/19 05:05 Urine Collection Type Unknown Urine Color Yellow Urine Clarity Clear Urine pH 5.0 Urine Specific [place] 1.020 Urine Protein Negative mg/dL (NEG-TRACE) Urine Glucose (UA) Negative mg/dL (NEG) Urine Ketones (Stick) 40 mg/dL (NEG) Urine Blood Negative (NEG) Urine Nitrite Negative (NEG) Urine Bilirubin Negative (NEG) Urine Urobilinogen Dipstick 1.0 mg/dL (0.2 mg/dL) Urine Leukocyte Esterase Negative (NEG) Urine RBC 1-2 /HPF (0-2) Urine WBC Occ /HPF (0-4) Urine Squamous Epithelial Cells Occ /LPF Urine Bacteria 0 /HPF (0-FEW) Urine Mucus Marked /LPF Sodium Level 141 mmol/L (136-145) 142 mmol/L (136-145) Potassium Level 4.0 mmol/L (3.5-5.1) 4.0 mmol/L (3.5-5.1) Chloride Level 106 mmol/L (98-107) 107 mmol/L (98-107) Carbon Dioxide Level 23 mmol/L (21-32) 24 mmol/L (21-32) Anion Gap 12 (6-14) 11 (6-14) Blood Urea Nitrogen 17 mg/dL (8-26) 14 mg/dL (8-26) Creatinine 1.2 mg/dL (0.7-1.3) 1.2 mg/dL (0.7-1.3) Estimated GFR (Cockcroft-Gault) 81.1 81.1 BUN/Creatinine Ratio 14 (6-20) Glucose Level 75 mg/dL (70-99) 112 mg/dL (70-99) Calcium Level 8.9 mg/dL (8.5-10.1) 9.2 mg/dL (8.5-10.1) Total Bilirubin 0.6 mg/dL (0.2-1.0) Aspartate Amino Transf (AST/SGOT) 16 U/L (15-37) Alanine Aminotransferase (ALT/SGPT) 14 U/L (16-63) Alkaline Phosphatase 71 U/L (46-116) Total Protein 6.7 g/dL (6.4-8.2) Albumin 3.3 g/dL (3.4-5.0) Albumin/Globulin Ratio 1.0 (1.0-1.7) Lipase 962 U/L (73-393) 1395 U/L (73-393) White Blood Count 8.6 x10^3/uL (4.0-11.0) Red Blood Count 4.14 x10^6/uL (4.30-5.70) Hemoglobin 13.8 g/dL (13.0-17.5) Hematocrit 40.9 % (39.0-53.0) Mean Corpuscular Volume 99 fL (79-100) Mean Corpuscular Hemoglobin 34 pg (25-35) Mean Corpuscular Hemoglobin Concent 34 g/dL (31-37) Red Cell Distribution Width 13.0 % (11.5-14.5) Platelet Count 241 x10^3/uL (140-400) Neutrophils (%) (Auto) 54 % (31-73) Lymphocytes (%) (Auto) 35 % (24-48) Monocytes (%) (Auto) 7 % (0-9) Eosinophils (%) (Auto) 3 % (0-3) Basophils (%) (Auto) 1 % (0-3) Neutrophils # (Auto) 4.6 x10^3/uL (1.8-7.7) Lymphocytes # (Auto) 3.0 x10^3/uL (1.0-4.8) Monocytes # (Auto) 0.6 x10^3/uL (0.0-1.1) Eosinophils # (Auto) 0.3 x10^3/uL (0.0-0.7) Basophils # (Auto) 0.1 x10^3/uL (0.0-0.2) Laboratory Tests Test 01/14/19 05:05 White Blood Count 8.6 x10^3/uL (4.0-11.0) Red Blood Count 4.14 x10^6/uL (4.30-5.70) Hemoglobin 13.8 g/dL (13.0-17.5) Hematocrit 40.9 % (39.0-53.0) Mean Corpuscular Volume 99 fL (79-100) Mean Corpuscular Hemoglobin 34 pg (25-35) Mean Corpuscular Hemoglobin Concent 34 g/dL (31-37) Red Cell Distribution Width 13.0 % (11.5-14.5) Platelet Count 241 x10^3/uL (140-400) Neutrophils (%) (Auto) 54 % (31-73) Lymphocytes (%) (Auto) 35 % (24-48) Monocytes (%) (Auto) 7 % (0-9) Eosinophils (%) (Auto) 3 % (0-3) Basophils (%) (Auto) 1 % (0-3) Neutrophils # (Auto) 4.6 x10^3/uL (1.8-7.7) Lymphocytes # (Auto) 3.0 x10^3/uL (1.0-4.8) Monocytes # (Auto) 0.6 x10^3/uL (0.0-1.1) Eosinophils # (Auto) 0.3 x10^3/uL (0.0-0.7) Basophils # (Auto) 0.1 x10^3/uL (0.0-0.2) Sodium Level 142 mmol/L (136-145) Potassium Level 4.0 mmol/L (3.5-5.1) Chloride Level 107 mmol/L (98-107) Carbon Dioxide Level 24 mmol/L (21-32) Anion Gap 11 (6-14) Blood Urea Nitrogen 14 mg/dL (8-26) Creatinine 1.2 mg/dL (0.7-1.3) Estimated GFR (Cockcroft-Gault) 81.1 Glucose Level 112 mg/dL (70-99) Calcium Level 9.2 mg/dL (8.5-10.1) Lipase 1395 U/L (73-393) Medications Current Medications Hydralazine HCl (Apresoline) 50 mg TID PO Last administered on 01/14/19at 08:25; Start 01/11/19 at 14:00 Nicotine (Nicoderm Cq 21mg) 1 patch DAILY TD Last administered on 01/14/19at 08:25; Start 01/11/19 at 11:00 Ondansetron HCl (Zofran) 4 mg PRN Q6HRS PRN IV NAUSEA/VOMITING; Start 01/11/19 at 10:30 Morphine Sulfate (Morphine Sulfate) 2 mg PRN Q1HR PRN IV PAIN Last administered on 01/12/19 01:13; Start 01/11/19 at 10:30 Oxycodone/ Acetaminophen (Percocet 5/325) 1 tab PRN Q4HRS PRN PO MILD PAIN, 1ST CHOICE Last administered on 01/14/19at 10:50; Start 01/11/19 at 10:30 Bisacodyl (Dulcolax Supp) 10 mg PRN DAILY PRN MD CONSTIPATION; Start 01/11/19 at 10:30 Amlodipine Besylate (Norvasc) 5 mg DAILY PO Last administered on 01/13/19 08:58; Start 01/11/19 at 11:00; Stop 01/13/19 at 10:25; Status DC Nitroglycerin (Nitro-Bid Oint) 1 inch PRN Q6HRS PRN TP HTN, SBP >160 2ND CHOICE; Start 01/11/19 at 11:00 Hydralazine HCl (Apresoline Inj) 10 mg PRN Q4HRS PRN IVP ELEVATED BP, 1ST CHOICE Last administered on 01/14/19at 08:25; Start 01/11/19 at 11:00 Pantoprazole Sodium (PROTONIX VIAL for IV PUSH) 40 mg DAILYAC IVP Last administered on 01/13/19 05:56; Start 01/12/19 at 07:30; Stop 01/13/19 at 15:17; Status DC Sodium Chloride 1,000 ml @ 75 mls/hr [id number] IV Last administered on 01/13/19at 05:56; Start 01/11/19 at 14:45 Amlodipine Besylate (Norvasc) 5 mg BID PO ; Start 01/13/19 at 10:30; Status Cancel Amlodipine Besylate (Norvasc) 5 mg BID PO Last administered on 01/14/19 08:25; Start 01/13/19 at 21:00 Pantoprazole Sodium (Protonix) 40 mg DAILYAC PO Last administered on 01/14/19 08:25; Start 01/14/19 at 07:30 Active Scripts Active Reported NICODERM CQ 21mg (Nicotine) 1 Each Patch.td24 1 Patch TP DAILY Metoprolol Tartrate 50 Mg Tablet 1 Tab PO BID Hydralazine Hcl 50 Mg Tablet 1 Tab PO TID Vitals/I & O Vital Sign - Last 24 Hours 01/13/19 01/13/19 01/13/19 01/13/19 14:47 15:00 19:25 20:00 Temp 98.0 97.9 98.0 97.9 Pulse 67 72 102 Resp 18 18 B/P (MAP) 158/89 166/99 (121) 177/101 (126) Pulse Ox 99 99 O2 Delivery Room Air Room Air Room Air 01/13/19 01/13/19 01/13/19 01/14/19 21:33 21:33 23:35 03:00 Temp 98.1 98.1 Pulse 102 102 70 76 Resp 20 17 B/P (MAP) 177/101 177/101 182/110 (134) 150/99 (116) Pulse Ox 95 97 O2 Delivery Room Air Room Air 01/14/19 01/14/19 01/14/19 01/14/19 07:00 08:00 08:25 08:25 Temp 97.6 97.6 Pulse 67 67 67 Resp 20 B/P (MAP) 164/100 (121) 164/100 164/100 Pulse Ox 97 O2 Delivery Room Air Room Air 01/14/19 01/14/19 08:25 10:50 Pulse 67 Resp 16 B/P (MAP) 164/100 O2 Delivery Room Air Intake and Output 01/13/19 01/13/19 01/14/19 14:59 22:59 06:59 Intake Total 240 ml Balance 240 ml FERDINAND GARRETT MD Jan 14, 2019 11:07
[2019-01-14 15:00] VITALS: BP 165/88
[2019-01-14 19:00] VITALS: BP 175/101
[2019-01-14 23:00] VITALS: BP 188/119
[2019-01-15 03:16] VITALS: BP 150/100
[2019-01-15] MEDS: PANTOPRAZOLE 40 MG TABLET.DR. PO SCH (06:26)
[2019-01-15 07:00] VITALS: BP 170/107
[2019-01-15] MEDS: amLODIPine BESYLATE 5 MG TABLET PO SCH ×2 (08:37→20:43)
[2019-01-15] MEDS: NICOTINE 21MG PATCH. TD SCH (08:39)
--- NOTE | 2019-01-15 09:06 | PDOC2 ---
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 He has had two other visits for the same problem. He was at the ER on December 28 and then discharged home and then came back on 01/02 and stayed until 01/05 when he was again discharged home. He denies any flank or kidney pain , also denies dysuria, hematuria, or associated LUTS. He does not have a history of BPH or prostate cancer and is feeling well overall today. He does have a family history of polycystic kidneys, int hat his father hat these and he was told he could have them also as they are hereditary, but he does not have any symptoms from these. He reports having another CT done recently at [facility] toward the beginning of the month and is not sure if this was with contrast or not. He denies a history of kidney stones. Past Medical History Cardiovascular: HTN Pulmonary: No pertinent hx GI: No pertinent hx Heme/Onc: No pertinent hx Hepatobiliary: No pertinent hx Psych: No pertinent hx Rheumatologic: No pertinent hx Infectious disease: No pertinent hx Renal/: Chronic renal insuff Endocrine: No pertinent hx Dermatology: No pertinent hx Past Surgical History Past Surgical History: No pertinent history Family History Family History: Hypertension Social History Social History: Parent (Father - AD PCKD, HTN) 1 pack per day ALCOHOL: none Drugs: Marijuana Current Problem List Problems: (1) Polycystic kidney Allergies Allergies: Coded Allergies: lisinopril (Verified Allergy, Severe, lip swelling, 01/11/19) ROS Review Of Systems: CONSTITUTIONAL: No fever or chills EYES: No recent changes SKIN: No rash or itching CARDIOVASCULAR: No chest pain, syncope, palpitations, or edema RESPIRATORY: No SOB or cough GASTROINTESTINAL: No nausea, vomiting or abdominal pain NEUROLOGICAL: No headaches or weakness ENDOCRINE: No cold or heat intolerance GENITOURINARY: No urgency or frequency of urination MUSCULOSKELETAL: No back pain or joint pain LYMPHATICS: No enlarged lymph nodes PSYCHIATRIC: No anxiety or depression Physical Exam Physical Exam: General: Pleasant, no acute distress, well groomed Eyes: conjunctiva anicteric, eyes full range of motion ENT: moist oral mucosa, normal dentition Neck: Trachea midline, no masses Respiratory: unlabored breathing, not using accessory muscles, Back: No CVA pain on testing Abdomen: + slight tenderness left upper quadrant nontender, nondistended, no hepatosplenomegaly, no masses Skin: no rashes or skin lesions on visualized skin Psych: normal mood, affect. Alert and oriented x 3. Vitals VITALS Vital Signs Date Time Temp Pulse Resp B/P (MAP) Pulse Ox O2 Delivery O2 Flow Rate FiO2 01/15/19 08:39 70 150/100 01/15/19 07:00 98.4 16 99 Room Air 98.4 Labs Labs Laboratory Tests Test 01/14/19 05:05 White Blood Count 8.6 x10^3/uL (4.0-11.0) Red Blood Count 4.14 x10^6/uL (4.30-5.70) Hemoglobin 13.8 g/dL (13.0-17.5) Hematocrit 40.9 % (39.0-53.0) Mean Corpuscular Volume 99 fL (79-100) Mean Corpuscular Hemoglobin 34 pg (25-35) Mean Corpuscular Hemoglobin Concent 34 g/dL (31-37) Red Cell Distribution Width 13.0 % (11.5-14.5) Platelet Count 241 x10^3/uL (140-400) Neutrophils (%) (Auto) 54 % (31-73) Lymphocytes (%) (Auto) 35 % (24-48) Monocytes (%) (Auto) 7 % (0-9) Eosinophils (%) (Auto) 3 % (0-3) Basophils (%) (Auto) 1 % (0-3) Neutrophils # (Auto) 4.6 x10^3/uL (1.8-7.7) Lymphocytes # (Auto) 3.0 x10^3/uL (1.0-4.8) Monocytes # (Auto) 0.6 x10^3/uL (0.0-1.1) Eosinophils # (Auto) 0.3 x10^3/uL (0.0-0.7) Basophils # (Auto) 0.1 x10^3/uL (0.0-0.2) Sodium Level 142 mmol/L (136-145) Potassium Level 4.0 mmol/L (3.5-5.1) Chloride Level 107 mmol/L (98-107) Carbon Dioxide Level 24 mmol/L (21-32) Anion Gap 11 (6-14) Blood Urea Nitrogen 14 mg/dL (8-26) Creatinine 1.2 mg/dL (0.7-1.3) Estimated GFR (Cockcroft-Gault) 81.1 Glucose Level 112 mg/dL (70-99) Calcium Level 9.2 mg/dL (8.5-10.1) Lipase 1395 U/L (73-393) Assessment/Plan Assessment/Plan Patient had two CT's done at [facility] on 12/28 - One CT ABD/Pelvis with IV contrast shows slightly hemorrhagic with suspected milk of calcium or punctate wall calcification. Evaluation limited for small solid renal cell lesion due to number of cysts. Recommend conservative management for now, but Will have Dr. Sequeira review for second opinion. RIK SEQUEIRA MD 01/15/19 1835: UROLOGY CONSULT Assessment/Plan Assessment/Plan Images CT of abdomen with contrast from 12/28/18 at [facility] reviewed - bilateral polycystic kidneys, no stone, obstruction, or solid lesions / tumors noted. No urologic intervention recommended. Recommend routine followup with nephrology. MODESTO DEAN APRN Jan 15, 2019 09:06 RIK SEQUEIRA MD Jan 15, 2019 18:35
--- NOTE | 2019-01-15 10:54 | NUR ---
SS following up with discharge planning. HCFS continuing to follow for self pay status. No discharge needs noted at this time. SS will continue to follow for discharge planning.
--- NOTE | 2019-01-15 10:57 | PDOC ---
Subjective: Subjective: Ate a regular breakfast (without sugar) this morning and has had no abd pain. Says he drank a soda on Tuesday night and had increased pain, then had syrup with breakfast on Tuesday and had increased pain (sharp/stabbing LUQ). Objective: Vital Signs: Vital Signs Date Time Temp Pulse Resp B/P (MAP) Pulse Ox O2 Delivery O2 Flow Rate FiO2 01/15/19 08:39 70 150/100 01/15/19 07:30 Room Air 01/15/19 07:00 98.4 16 99 98.4 Imaging: MRCP 01/12 IMPRESSION: Limited exam due to lack of IV contrast. 1. Couple of pancreatic body and tail lesion too small to characterize. Differential diagnoses includes side branch intraductal papillary mucinous neoplasm or cysts. Follow-up MRI/MRCP in 6 months recommended. 2. Bilateral polycystic kidneys. Some of the cysts a complicated with internal proteinaceous debris or blood products. Evaluation of RCC is limited due to lack of IV contrast. PE: GEN: NAD - sitting in chair, looks better LUNGS: CTAB HEART: RRR ABD: S/ND/NT NEURO/PSYCH: A & O �3 A/P: Pancreatitis PCKD HTN -- CA19-9 pending. Lipase worse yesterday, but today is pain free after regular diet. ?PITA Ponce Jan 15, 2019 10:57
[2019-01-15 11:02] VITALS: BP 179/116
--- NOTE | 2019-01-15 11:07 | PDOC ---
PROGRESS NOTES History of Present Illness History of Present Illness VTE Prophylaxis Ordered VTE Prophylaxis Devices: Yes VTE Pharmacological Prophylaxi: No Assessment/Plan Assessment/Plan A/P: Intractable nausea and vomiting - likely 2/2 pancreatitis, Acute pancreatitis - etiology unclear, though PCKD and smoking status does increase his risk a bit. Non-drinker. Will check RUQ US, check Triglycerides, TSH. Consult GI Leukocytosis - likely 2/2 pancreatitis, no signs of necrosis. Will monitor as he does meet SIRS criteria I do not feel he is septic PCKD - his father had dx, he has been diagnosed, though he does not have insuran ce and has not seen nephrology or had HTN. HTN - no formal diagnosis. High risk with being and having PCKD he likely does have HTN. Lisinopril caused a bad reaction. Amlodipine may be a better choice for him. Treated for HTN urgency in ED, however with his pain controlled his BP has normalized Smoker - nicotine patch offered, counseled on cessation Pancreatitis, Pancreatic body and tail lesion too small to characterize. Differential diagnoses includes side branch intraductal papillary mucinous neoplasm or cysts. Follow-up MRI/MRCP in 6 months recommended. Bilateral polycystic kidneys. Some of the cysts a complicated with internal proteinaceous debris or blood products. hypertension, uncontrolled plan -- MRCP and CA19-9 pending. FEN - NPO PPX - SCDs FULL CODE Dispo - was initially admitted to ICU 2/2 uncontrolled HTN, ok to d/c telemetry and downgrade to med/surg. Likely 2 midnights. UROLOGY CONSULT inc norvasc to 5 mg bid CA19-9 29 min pt exam, chart review, > 50% of time spent with exam, chart review, pt care coordination Vitals Vitals Vital Signs Date Time Temp Pulse Resp B/P (MAP) Pulse Ox O2 Delivery O2 Flow Rate FiO2 01/15/19 11:02 97.8 63 16 179/116 (137) 98 Room Air 97.8 Physical Exam General: Alert, Oriented X3, Cooperative, No acute distress Heart: Regular rate, Normal S1, Normal S2 Lungs: Clear Abdomen: Normal bowel sounds, Soft, No hepatosplenomegaly, No masses, Other (RUQ and LUQ tender) Extremities: No clubbing, No cyanosis, No edema, Normal pulses, No tenderness/swelling Skin: No rashes, No breakdown, No significant lesion Comment Review of Relevant I have reviewed the following items chandler (where applicable) has been applied. Labs Laboratory Tests Test 01/14/19 05:05 White Blood Count 8.6 x10^3/uL (4.0-11.0) Red Blood Count 4.14 x10^6/uL (4.30-5.70) Hemoglobin 13.8 g/dL (13.0-17.5) Hematocrit 40.9 % (39.0-53.0) Mean Corpuscular Volume 99 fL (79-100) Mean Corpuscular Hemoglobin 34 pg (25-35) Mean Corpuscular Hemoglobin Concent 34 g/dL (31-37) Red Cell Distribution Width 13.0 % (11.5-14.5) Platelet Count 241 x10^3/uL (140-400) Neutrophils (%) (Auto) 54 % (31-73) Lymphocytes (%) (Auto) 35 % (24-48) Monocytes (%) (Auto) 7 % (0-9) Eosinophils (%) (Auto) 3 % (0-3) Basophils (%) (Auto) 1 % (0-3) Neutrophils # (Auto) 4.6 x10^3/uL (1.8-7.7) Lymphocytes # (Auto) 3.0 x10^3/uL (1.0-4.8) Monocytes # (Auto) 0.6 x10^3/uL (0.0-1.1) Eosinophils # (Auto) 0.3 x10^3/uL (0.0-0.7) Basophils # (Auto) 0.1 x10^3/uL (0.0-0.2) Sodium Level 142 mmol/L (136-145) Potassium Level 4.0 mmol/L (3.5-5.1) Chloride Level 107 mmol/L (98-107) Carbon Dioxide Level 24 mmol/L (21-32) Anion Gap 11 (6-14) Blood Urea Nitrogen 14 mg/dL (8-26) Creatinine 1.2 mg/dL (0.7-1.3) Estimated GFR (Cockcroft-Gault) 81.1 Glucose Level 112 mg/dL (70-99) Calcium Level 9.2 mg/dL (8.5-10.1) Lipase 1395 U/L (73-393) Medications Current Medications Hydralazine HCl (Apresoline) 50 mg TID PO Last administered on 01/15/19 08:39; Start 01/11/19 at 14:00 Nicotine (Nicoderm Cq 21mg) 1 patch DAILY TD Last administered on 01/15/19 08:39; Start 01/11/19 at 11:00 Ondansetron HCl (Zofran) 4 mg PRN Q6HRS PRN IV NAUSEA/VOMITING; Start 01/11/19 at 10:30 Morphine Sulfate (Morphine Sulfate) 2 mg PRN Q1HR PRN IV PAIN Last administered on 01/12/19 01:13; Start 01/11/19 at 10:30 Oxycodone/ Acetaminophen (Percocet 5/325) 1 tab PRN Q4HRS PRN PO MILD PAIN, 1ST CHOICE Last administered on 01/14/19at 10:50; Start 01/11/19 at 10:30 Bisacodyl (Dulcolax Supp) 10 mg PRN DAILY PRN SC CONSTIPATION; Start 01/11/19 at 10:30 Amlodipine Besylate (Norvasc) 5 mg DAILY PO Last administered on 01/13/19at 08:58; Start 01/11/19 at 11:00; Stop 01/13/19 at 10:25; Status DC Nitroglycerin (Nitro-Bid Oint) 1 inch PRN Q6HRS PRN TP HTN, SBP >160 2ND CHOICE; Start 01/11/19 at 11:00 Hydralazine HCl (Apresoline Inj) 10 mg PRN Q4HRS PRN IVP ELEVATED BP, 1ST CHOICE Last administered on 01/14/19 08:25; Start 01/11/19 at 11:00 Pantoprazole Sodium (PROTONIX VIAL for IV PUSH) 40 mg DAILYAC IVP Last administered on 01/13/19 05:56; Start 01/12/19 at 07:30; Stop 01/13/19 at 15:17; Status DC Sodium Chloride 1,000 ml @ 75 mls/hr [id number] IV Last administered on 01/13/19 05:56; Start 01/11/19 at 14:45 Amlodipine Besylate (Norvasc) 5 mg BID PO ; Start 01/13/19 at 10:30; Status Cancel Amlodipine Besylate (Norvasc) 5 mg BID PO Last administered on 01/15/19at 08:39; Start 01/13/19 at 21:00 Pantoprazole Sodium (Protonix) 40 mg DAILYAC PO Last administered on 01/15/19at 06:26; Start 01/14/19 at 07:30 Active Scripts Active Reported NICODERM CQ 21mg (Nicotine) 1 Each Patch.td24 1 Patch TP DAILY Metoprolol Tartrate 50 Mg Tablet 1 Tab PO BID Hydralazine Hcl 50 Mg Tablet 1 Tab PO TID Vitals/I & O Vital Sign - Last 24 Hours 01/14/19 01/14/19 01/14/19 01/14/19 14:07 15:00 19:00 20:00 Temp 97.4 97.1 97.4 97.1 Pulse 68 65 77 Resp 20 20 B/P (MAP) 161/98 165/88 (113) 175/101 (125) Pulse Ox 99 99 O2 Delivery Room Air Room Air 01/14/19 01/14/19 01/14/19 01/15/19 21:44 21:44 23:00 03:16 Temp 98.2 97.9 98.2 97.9 Pulse 77 77 73 70 Resp 20 16 B/P (MAP) 175/101 175/101 188/119 (142) 150/100 (117) Pulse Ox 97 94 O2 Delivery Room Air Room Air 01/15/19 01/15/19 01/15/19 01/15/19 07:00 07:30 08:39 08:39 Temp 98.4 98.4 Pulse 67 70 70 Resp 16 B/P (MAP) 170/107 (128) 150/100 150/100 Pulse Ox 99 O2 Delivery Room Air Room Air 01/15/19 11:02 Temp 97.8 97.8 Pulse 63 Resp 16 B/P (MAP) 179/116 (137) Pulse Ox 98 O2 Delivery Room Air Intake and Output 01/14/19 01/14/19 01/15/19 15:00 23:00 07:00 Intake Total 240 ml Balance 240 ml FERDINAND GARRETT MD Jan 15, 2019 11:07
[2019-01-15] MEDS: IV NORMAL SALINE 1000ML BAG 1,000 ML IV SCH (12:05)
[2019-01-15 15:10] VITALS: BP 180/118
[2019-01-15 19:00] VITALS: BP 186/113
[2019-01-15 23:00] VITALS: BP 176/118
[2019-01-15] MEDS: hydrALAZINE 20 MG/ML VIAL. IVP PRN (23:47)
[2019-01-16] MEDS: IV NORMAL SALINE 1000ML BAG 1,000 ML IV SCH (01:25)
[2019-01-16 03:00] VITALS: BP 132/93
[2019-01-16] MEDS: PANTOPRAZOLE 40 MG TABLET.DR. PO SCH (05:15)
[2019-01-16 07:00] VITALS: BP 153/104
[2019-01-16] MEDS: amLODIPine BESYLATE 5 MG TABLET PO SCH (07:48)
[2019-01-16] MEDS: NICOTINE 21MG PATCH. TD SCH (07:51)
[2019-01-16 08:09] LABS: BASO # 0.1 x10^3/uL (0.0-0.2); BASO % 1 % (0-3); EOS # 0.4 x10^3/uL (0.0-0.7); EOS % 3 % (0-3); HEMATOCRIT 44.2 % (39.0-53.0); HEMOGLOBIN 15.2 g/dL (13.0-17.5); LYMPH # 2.8 x10^3/uL (1.0-4.8); LYMPH % 27 % (24-48); MEAN CORPUSCULAR HEMOGLOBIN 34 pg (25-35); MEAN CORPUSCULAR HGB CONC 34 g/dL (31-37); MEAN CORPUSCULAR VOLUME 98 fL (79-100); MONO # 0.4 x10^3/uL (0.0-1.1); MONO % 4 % (0-9); NEUT # 6.7 x10^3/uL (1.8-7.7); NEUT % 65 % (31-73); PLATELET COUNT 245 x10^3/uL (140-400); RED BLOOD COUNT 4.51 x10^6/uL (4.30-5.70); RED CELL DISTRIBUTION WIDTH 13.2 % (11.5-14.5); WHITE BLOOD COUNT 10.3 x10^3/uL (4.0-11.0)
--- NOTE | 2019-01-16 08:41 | PDOC ---
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 PERRL, EOM's intact. Fundi benign Lungs: Regular respirations, non labored breathing Psych: Appropriate, cooperative Vital Signs Vital Signs Date Time Temp Pulse Resp B/P (MAP) Pulse Ox O2 Delivery O2 Flow Rate FiO2 01/16/19 07:51 72 153/104 01/16/19 07:51 72 153/104 01/16/19 07:00 98.0 72 16 153/104 (120) 98 Room Air 98.0 01/16/19 03:00 98.0 104 16 132/93 (106) 96 Room Air 98.0 01/15/19 23:47 75 176/118 01/15/19 23:00 97.6 75 16 176/118 (137) 99 Room Air 97.6 01/15/19 20:43 65 186/113 01/15/19 20:43 65 186/113 01/15/19 20:20 Room Air 01/15/19 19:00 98.1 65 16 186/113 (137) 98 Room Air 98.1 01/15/19 15:10 98.3 75 16 180/118 (138) 99 Room Air 98.3 01/15/19 14:41 63 179/116 01/15/19 11:02 97.8 63 16 179/116 (137) 98 Room Air 97.8 I & O Intake and Output 01/16/19 07:00 Intake Total 1000 ml Balance 1000 ml Intake Oral 1000 ml # Voids 2 # Bowel Movements 1 PHYSICAL EXAM Physical Exam Physical Exam: General appearance: Alert and Oriented Head: Normocephalic, without obvious abnormality Eyes: conjunctivae/corneas clear. PERRL, EOM's intact. Fundi benign Lungs: Regular respirations, non labored breathing Psych: Appropriate, cooperative ASSESSMENT/PLAN Assessment/Plan Images CT of abdomen with contrast from 12/28/18 at [facility] [place] - bilateral polycystic kidneys, no stone, obstruction, or solid lesions / tumors noted. No urologic intervention recommended. Recommend routine followup with nephrology. I did order a consult so he can be seen by them while in house. Pt given our card should he have further questions or concerns Will sign off at this time, but please call with questions or changes in patient condition. COMMENT Lab Laboratory Tests Test 01/16/19 06:50 White Blood Count 10.3 x10^3/uL (4.0-11.0) Red Blood Count 4.51 x10^6/uL (4.30-5.70) Hemoglobin 15.2 g/dL (13.0-17.5) Hematocrit 44.2 % (39.0-53.0) Mean Corpuscular Volume 98 fL (79-100) Mean Corpuscular Hemoglobin 34 pg (25-35) Mean Corpuscular Hemoglobin Concent 34 g/dL (31-37) Red Cell Distribution Width 13.2 % (11.5-14.5) Platelet Count 245 x10^3/uL (140-400) Neutrophils (%) (Auto) 65 % (31-73) Lymphocytes (%) (Auto) 27 % (24-48) Monocytes (%) (Auto) 4 % (0-9) Eosinophils (%) (Auto) 3 % (0-3) Basophils (%) (Auto) 1 % (0-3) Neutrophils # (Auto) 6.7 x10^3/uL (1.8-7.7) Lymphocytes # (Auto) 2.8 x10^3/uL (1.0-4.8) Monocytes # (Auto) 0.4 x10^3/uL (0.0-1.1) Eosinophils # (Auto) 0.4 x10^3/uL (0.0-0.7) Basophils # (Auto) 0.1 x10^3/uL (0.0-0.2) RIK SEQUEIRA MD 01/18/19 1606: ASSESSMENT/PLAN Assessment/Plan Agree with assessment and plan. MODESTO DEAN APRN Jan 16, 2019 08:41 RIK SEQUEIRA MD Jan 18, 2019 16:06
[2019-01-16 09:24] VITALS: BP 135/89
[2019-01-16 11:00] VITALS: BP 124/91
--- NOTE | 2019-01-16 11:00 | PDOC ---
PROGRESS NOTES History of Present Illness History of Present Illness VTE Prophylaxis Ordered VTE Prophylaxis Devices: Yes VTE Pharmacological Prophylaxi: No Assessment/Plan Assessment/Plan A/P: Intractable nausea and vomiting - likely 2/2 pancreatitis, Acute pancreatitis - etiology unclear, though PCKD and smoking status does increase his risk a bit. Non-drinker. Will check RUQ US, check Triglycerides, TSH. Consult GI Leukocytosis - likely 2/2 pancreatitis, no signs of necrosis. Will monitor as he does meet SIRS criteria I do not feel he is septic PCKD - his father had dx, he has been diagnosed, though he does not have insuran ce and has not seen nephrology or had HTN. HTN - no formal diagnosis. High risk with being and having PCKD he likely does have HTN. Lisinopril caused a bad reaction. Amlodipine may be a better choice for him. Treated for HTN urgency in ED, however with his pain controlled his BP has normalized Smoker - nicotine patch offered, counseled on cessation Pancreatitis, Pancreatic body and tail lesion too small to characterize. Differential diagnoses includes side branch intraductal papillary mucinous neoplasm or cysts. Follow-up MRI/MRCP in 6 months recommended. Bilateral polycystic kidneys. Some of the cysts a complicated with internal proteinaceous debris or blood products. hypertension, uncontrolled plan -- MRCP and CA19-9 pending. FEN - NPO PPX - SCDs FULL CODE Dispo - was initially admitted to ICU 2/2 uncontrolled HTN, ok to d/c telemetry and downgrade to med/surg. Likely 2 midnights. UROLOGY CONSULT inc norvasc to 5 mg bid CA19-9 nephrology consult 26 min pt exam, chart review, > 50% of time spent with exam, chart review, pt care coordination Vitals Vitals Vital Signs Date Time Temp Pulse Resp B/P (MAP) Pulse Ox O2 Delivery O2 Flow Rate FiO2 01/16/19 09:24 111 135/89 (104) 01/16/19 07:00 98.0 16 98 Room Air 98.0 Physical Exam General: Alert, Oriented X3, Cooperative, No acute distress Heart: Regular rate, Normal S1, Normal S2 Lungs: Clear Abdomen: Normal bowel sounds, Soft, No hepatosplenomegaly, No masses, Other (RUQ and LUQ tender) Extremities: No clubbing, No cyanosis, No edema, Normal pulses, No tenderness/swelling Skin: No rashes, No breakdown, No significant lesion Labs LABS Laboratory Tests Test 01/16/19 06:50 White Blood Count 10.3 x10^3/uL (4.0-11.0) Red Blood Count 4.51 x10^6/uL (4.30-5.70) Hemoglobin 15.2 g/dL (13.0-17.5) Hematocrit 44.2 % (39.0-53.0) Mean Corpuscular Volume 98 fL (79-100) Mean Corpuscular Hemoglobin 34 pg (25-35) Mean Corpuscular Hemoglobin Concent 34 g/dL (31-37) Red Cell Distribution Width 13.2 % (11.5-14.5) Platelet Count 245 x10^3/uL (140-400) Neutrophils (%) (Auto) 65 % (31-73) Lymphocytes (%) (Auto) 27 % (24-48) Monocytes (%) (Auto) 4 % (0-9) Eosinophils (%) (Auto) 3 % (0-3) Basophils (%) (Auto) 1 % (0-3) Neutrophils # (Auto) 6.7 x10^3/uL (1.8-7.7) Lymphocytes # (Auto) 2.8 x10^3/uL (1.0-4.8) Monocytes # (Auto) 0.4 x10^3/uL (0.0-1.1) Eosinophils # (Auto) 0.4 x10^3/uL (0.0-0.7) Basophils # (Auto) 0.1 x10^3/uL (0.0-0.2) Comment Review of Relevant I have reviewed the following items chandler (where applicable) has been applied. Labs Laboratory Tests Test 01/16/19 06:50 White Blood Count 10.3 x10^3/uL (4.0-11.0) Red Blood Count 4.51 x10^6/uL (4.30-5.70) Hemoglobin 15.2 g/dL (13.0-17.5) Hematocrit 44.2 % (39.0-53.0) Mean Corpuscular Volume 98 fL (79-100) Mean Corpuscular Hemoglobin 34 pg (25-35) Mean Corpuscular Hemoglobin Concent 34 g/dL (31-37) Red Cell Distribution Width 13.2 % (11.5-14.5) Platelet Count 245 x10^3/uL (140-400) Neutrophils (%) (Auto) 65 % (31-73) Lymphocytes (%) (Auto) 27 % (24-48) Monocytes (%) (Auto) 4 % (0-9) Eosinophils (%) (Auto) 3 % (0-3) Basophils (%) (Auto) 1 % (0-3) Neutrophils # (Auto) 6.7 x10^3/uL (1.8-7.7) Lymphocytes # (Auto) 2.8 x10^3/uL (1.0-4.8) Monocytes # (Auto) 0.4 x10^3/uL (0.0-1.1) Eosinophils # (Auto) 0.4 x10^3/uL (0.0-0.7) Basophils # (Auto) 0.1 x10^3/uL (0.0-0.2) Laboratory Tests Test 01/16/19 06:50 White Blood Count 10.3 x10^3/uL (4.0-11.0) Red Blood Count 4.51 x10^6/uL (4.30-5.70) Hemoglobin 15.2 g/dL (13.0-17.5) Hematocrit 44.2 % (39.0-53.0) Mean Corpuscular Volume 98 fL (79-100) Mean Corpuscular Hemoglobin 34 pg (25-35) Mean Corpuscular Hemoglobin Concent 34 g/dL (31-37) Red Cell Distribution Width 13.2 % (11.5-14.5) Platelet Count 245 x10^3/uL (140-400) Neutrophils (%) (Auto) 65 % (31-73) Lymphocytes (%) (Auto) 27 % (24-48) Monocytes (%) (Auto) 4 % (0-9) Eosinophils (%) (Auto) 3 % (0-3) Basophils (%) (Auto) 1 % (0-3) Neutrophils # (Auto) 6.7 x10^3/uL (1.8-7.7) Lymphocytes # (Auto) 2.8 x10^3/uL (1.0-4.8) Monocytes # (Auto) 0.4 x10^3/uL (0.0-1.1) Eosinophils # (Auto) 0.4 x10^3/uL (0.0-0.7) Basophils # (Auto) 0.1 x10^3/uL (0.0-0.2) Medications Current Medications Hydralazine HCl (Apresoline) 50 mg TID PO Last administered on 01/16/19 07:51; Start 01/11/19 at 14:00 Nicotine (Nicoderm Cq 21mg) 1 patch DAILY TD Last administered on 01/16/19 07:51; Start 01/11/19 at 11:00 Ondansetron HCl (Zofran) 4 mg PRN Q6HRS PRN IV NAUSEA/VOMITING; Start 01/11/19 at 10:30 Morphine Sulfate (Morphine Sulfate) 2 mg PRN Q1HR PRN IV PAIN Last administered on 01/12/19at 01:13; Start 01/11/19 at 10:30 Oxycodone/ Acetaminophen (Percocet 5/325) 1 tab PRN Q4HRS PRN PO MILD PAIN, 1ST CHOICE Last administered on 01/14/19at 10:50; Start 01/11/19 at 10:30 Bisacodyl (Dulcolax Supp) 10 mg PRN DAILY PRN SC CONSTIPATION; Start 01/11/19 at 10:30 Amlodipine Besylate (Norvasc) 5 mg DAILY PO Last administered on 01/13/19 08:58; Start 01/11/19 at 11:00; Stop 01/13/19 at 10:25; Status DC Nitroglycerin (Nitro-Bid Oint) 1 inch PRN Q6HRS PRN TP HTN, SBP >160 2ND CHOICE; Start 01/11/19 at 11:00 Hydralazine HCl (Apresoline Inj) 10 mg PRN Q4HRS PRN IVP ELEVATED BP, 1ST CHOICE Last administered on 01/15/19 23:47; Start 01/11/19 at 11:00 Pantoprazole Sodium (PROTONIX VIAL for IV PUSH) 40 mg DAILYAC IVP Last administered on 01/13/19 05:56; Start 01/12/19 at 07:30; Stop 01/13/19 at 15:17; Status DC Sodium Chloride 1,000 ml @ 75 mls/hr [id number] IV Last administered on 01/13/19at 05:56; Start 01/11/19 at 14:45 Amlodipine Besylate (Norvasc) 5 mg BID PO ; Start 01/13/19 at 10:30; Status Cancel Amlodipine Besylate (Norvasc) 5 mg BID PO Last administered on 01/16/19at 07:51; Start 01/13/19 at 21:00 Pantoprazole Sodium (Protonix) 40 mg DAILYAC PO Last administered on 01/16/19at 05:15; Start 01/14/19 at 07:30 Active Scripts Active Reported NICODERM CQ 21mg (Nicotine) 1 Each Patch.td24 1 Patch TP DAILY Metoprolol Tartrate 50 Mg Tablet 1 Tab PO BID Hydralazine Hcl 50 Mg Tablet 1 Tab PO TID Vitals/I & O Vital Sign - Last 24 Hours 01/15/19 01/15/19 01/15/19 01/15/19 11:02 14:41 15:10 19:00 Temp 97.8 98.3 98.1 97.8 98.3 98.1 Pulse 63 63 75 65 Resp 16 16 16 B/P (MAP) 179/116 (137) 179/116 180/118 (138) 186/113 (137) Pulse Ox 98 99 98 O2 Delivery Room Air Room Air Room Air 01/15/19 01/15/19 01/15/19 01/15/19 20:20 20:43 20:43 23:00 Temp 97.6 97.6 Pulse 65 65 75 Resp 16 B/P (MAP) 186/113 186/113 176/118 (137) Pulse Ox 99 O2 Delivery Room Air Room Air 01/15/19 01/16/19 01/16/19 01/16/19 23:47 03:00 07:00 07:51 Temp 98.0 98.0 98.0 98.0 Pulse 75 104 72 72 Resp 16 16 B/P (MAP) 176/118 132/93 (106) 153/104 (120) 153/104 Pulse Ox 96 98 O2 Delivery Room Air Room Air 01/16/19 01/16/19 07:51 09:24 Pulse 72 111 B/P (MAP) 153/104 135/89 (104) Intake and Output 01/15/19 01/15/19 01/16/19 15:00 23:00 07:00 Intake Total 1000 ml Balance 1000 ml FERDINAND GARRETT MD Jan 16, 2019 11:00
[2019-01-16 11:21] LABS: CALCIUM 9.9 mg/dL (8.5-10.1); CREATININE 1.3 mg/dL (0.7-1.3); POTASSIUM 3.9 mmol/L (3.5-5.1); TOTAL BILIRUBIN 0.4 mg/dL (0.2-1.0); TOTAL PROTEIN 8.2 g/dL (6.4-8.2)
--- NOTE | 2019-01-16 11:54 | PDOC ---
Subjective: Subjective: No abd pain. Tolerating PO w/o issue. Hoping to go home soon. Objective: Vital Signs: Vital Signs Date Time Temp Pulse Resp B/P (MAP) Pulse Ox O2 Delivery O2 Flow Rate FiO2 01/16/19 11:00 98.4 71 16 124/91 (102) 99 Room Air 98.4 Labs: Laboratory Tests Test 01/16/19 06:50 01/16/19 10:30 White Blood Count 10.3 x10^3/uL Red Blood Count 4.51 x10^6/uL Hemoglobin 15.2 g/dL Hematocrit 44.2 % Mean Corpuscular Volume 98 fL Mean Corpuscular Hemoglobin 34 pg Mean Corpuscular Hemoglobin Concent 34 g/dL Red Cell Distribution Width 13.2 % Platelet Count 245 x10^3/uL Neutrophils (%) (Auto) 65 % Lymphocytes (%) (Auto) 27 % Monocytes (%) (Auto) 4 % Eosinophils (%) (Auto) 3 % Basophils (%) (Auto) 1 % Neutrophils # (Auto) 6.7 x10^3/uL Lymphocytes # (Auto) 2.8 x10^3/uL Monocytes # (Auto) 0.4 x10^3/uL Eosinophils # (Auto) 0.4 x10^3/uL Basophils # (Auto) 0.1 x10^3/uL Sodium Level 141 mmol/L Potassium Level 3.9 mmol/L Chloride Level 104 mmol/L Carbon Dioxide Level 27 mmol/L Anion Gap 10 Blood Urea Nitrogen 17 mg/dL Creatinine 1.3 mg/dL Estimated GFR (Cockcroft-Gault) 74.0 BUN/Creatinine Ratio 13 Glucose Level 121 mg/dL Calcium Level 9.9 mg/dL Total Bilirubin 0.4 mg/dL Aspartate Amino Transf (AST/SGOT) 15 U/L Alanine Aminotransferase (ALT/SGPT) 15 U/L Alkaline Phosphatase 91 U/L Total Protein 8.2 g/dL Albumin 4.0 g/dL Albumin/Globulin Ratio 1.0 CA19-9 36 PE: GEN: NAD, eating lunch LUNGS: CTAB HEART: RRR ABD: S/ND/NT NEURO/PSYCH: A & O �3 A/P: Pancreatitis - possibly related to PCKD/cyst pressing on PD - resolved -- Note plans for nephrology consult. DC per primary. PITA VANN Jan 16, 2019 11:54
--- NOTE | 2019-01-16 12:08 | PDOC2 ---
CONSULT Date of Consult Date of Consult DATE: 01/16/19 TIME: 12:01 Reason for Consult Reason for Consult: PKD Referring Physician Referring Physician: MELANIE Identification/Chief Complaint Chief Complaint HTN Source Source: Chart review, Patient History of Present Illness Reason for Visit: THIS IS A 38 YR OLD WITH ABD PAIN AND DX WITH PANCREATITIS. NO HX OF ANY ETOH OR PRIOR HX OF PANCREATITIS. GI EVAL ONGOING. NOTED TO HAVE HTN. 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 FATHER HAD PKD AND WAS ON PD FOR 14 YEARS BEFORE HE . CR OF 1.3 WITH GFR IN THE 70-80 RANGE. BP HAS BEEN HIGH. PER PT HE WAS NOT TAKING ANYTHING OP. DID HAVE LISINOPRIL STARTED AT [facility] BUT WAS DISCONTINUED DUE TO ANGIOEDEMA. NEVER SEEN NEPHROLOGY BEFORE. REPORTS NO OTHER CHRONIC MED USE OR OTHER MEDICAL CONDITIONS. RENAL SONO HERE C/W PKD Past Medical History Cardiovascular: HTN Pulmonary: No pertinent hx GI: No pertinent hx Heme/Onc: No pertinent hx Hepatobiliary: No pertinent hx Psych: No pertinent hx Rheumatologic: No pertinent hx Infectious disease: No pertinent hx Renal/: Chronic renal insuff Endocrine: No pertinent hx Dermatology: No pertinent hx Past Surgical History Past Surgical History: No pertinent history Family History Family History FATHER HAD ADPKD AND WAS ON PD Family History: Hypertension Social History Social History: Parent (Father - AD PCKD, HTN) 1 pack per day ALCOHOL: none Drugs: Marijuana Lives: with Family Current Medications Current Medications Current Medications Hydralazine HCl (Apresoline) 50 mg TID PO Last administered on 01/16/19at 07:51; Start 01/11/19 at 14:00 Nicotine (Nicoderm Cq 21mg) 1 patch DAILY TD Last administered on 01/16/19at 07:51; Start 01/11/19 at 11:00 Ondansetron HCl (Zofran) 4 mg PRN Q6HRS PRN IV NAUSEA/VOMITING; Start 01/11/19 at 10:30 Morphine Sulfate (Morphine Sulfate) 2 mg PRN Q1HR PRN IV PAIN Last administered on 01/12/19at 01:13; Start 01/11/19 at 10:30 Oxycodone/ Acetaminophen (Percocet 5/325) 1 tab PRN Q4HRS PRN PO MILD PAIN, 1ST CHOICE Last administered on 01/14/19at 10:50; Start 01/11/19 at 10:30 Bisacodyl (Dulcolax Supp) 10 mg PRN DAILY PRN [place] CONSTIPATION; Start 01/11/19 at 10:30 Amlodipine Besylate (Norvasc) 5 mg DAILY PO Last administered on 01/13/19at 08:58; Start 01/11/19 at 11:00; Stop 01/13/19 at 10:25; Status DC Nitroglycerin (Nitro-Bid Oint) 1 inch PRN Q6HRS PRN TP HTN, SBP >160 2ND CHOICE; Start 01/11/19 at 11:00 Hydralazine HCl (Apresoline Inj) 10 mg PRN Q4HRS PRN IVP ELEVATED BP, 1ST CHOICE Last administered on 01/15/19at 23:47; Start 01/11/19 at 11:00 Pantoprazole Sodium (PROTONIX VIAL for IV PUSH) 40 mg DAILYAC IVP Last administered on 01/13/19at 05:56; Start 01/12/19 at 07:30; Stop 01/13/19 at 15:17; Status DC Sodium Chloride 1,000 ml @ 75 mls/hr [id number] IV Last administered on 01/13/19at 05:56; Start 01/11/19 at 14:45 Amlodipine Besylate (Norvasc) 5 mg BID PO ; Start 01/13/19 at 10:30; Status Cancel Amlodipine Besylate (Norvasc) 5 mg BID PO Last administered on 01/16/19at 07:51; Start 01/13/19 at 21:00 Pantoprazole Sodium (Protonix) 40 mg DAILYAC PO Last administered on 01/16/19at 05:15; Start 01/14/19 at 07:30 Active Scripts Active Reported NICODERM CQ 21mg (Nicotine) 1 Each Patch.td24 1 Patch TP DAILY Metoprolol Tartrate 50 Mg Tablet 1 Tab PO BID Hydralazine Hcl 50 Mg Tablet 1 Tab PO TID Allergies Allergies: Coded Allergies: lisinopril (Verified Allergy, Severe, lip swelling, 01/11/19) ROS General: YES: Fatigue, Appetite PSYCHOLOGICAL ROS: YES: Anxiety Eyes: Yes Decreased vision HEENT: YES: Heacaches Respiratory: YES: Cough Gastrointestinal: Yes Nausea, Yes Abdominal Pain Genitourinary: YES Other (NOCTURIA) Musculoskeletal: Yes Muscular Weakness Neurological: Yes Weakness Skin: Yes Dry Skin Physical Exam General: Alert, Oriented X3, Cooperative, No acute distress HEENT: Atraumatic, PERRLA, EOMI, Mucous membr. moist/pink Lungs: Clear to auscultation, Normal air movement Heart: Regular rate, Normal S1, Normal S2 Abdomen: Normal bowel sounds, Soft, No tenderness Extremities: No cyanosis Skin: No breakdown Neuro: Normal speech, Cranial nerves 3-12 NL Psych/Mental Status: Mental status NL, Mood NL MUSCULOSKELETAL: No joint tenderness, No deformity, No swelling Vitals VITALS Vital Signs Date Time Temp Pulse Resp B/P (MAP) Pulse Ox O2 Delivery O2 Flow Rate FiO2 01/16/19 11:00 98.4 71 16 124/91 (102) 99 Room Air 98.4 Labs Labs Laboratory Tests Test 01/16/19 06:50 01/16/19 10:30 White Blood Count 10.3 x10^3/uL (4.0-11.0) Red Blood Count 4.51 x10^6/uL (4.30-5.70) Hemoglobin 15.2 g/dL (13.0-17.5) Hematocrit 44.2 % (39.0-53.0) Mean Corpuscular Volume 98 fL (79-100) Mean Corpuscular Hemoglobin 34 pg (25-35) Mean Corpuscular Hemoglobin Concent 34 g/dL (31-37) Red Cell Distribution Width 13.2 % (11.5-14.5) Platelet Count 245 x10^3/uL (140-400) Neutrophils (%) (Auto) 65 % (31-73) Lymphocytes (%) (Auto) 27 % (24-48) Monocytes (%) (Auto) 4 % (0-9) Eosinophils (%) (Auto) 3 % (0-3) Basophils (%) (Auto) 1 % (0-3) Neutrophils # (Auto) 6.7 x10^3/uL (1.8-7.7) Lymphocytes # (Auto) 2.8 x10^3/uL (1.0-4.8) Monocytes # (Auto) 0.4 x10^3/uL (0.0-1.1) Eosinophils # (Auto) 0.4 x10^3/uL (0.0-0.7) Basophils # (Auto) 0.1 x10^3/uL (0.0-0.2) Sodium Level 141 mmol/L (136-145) Potassium Level 3.9 mmol/L (3.5-5.1) Chloride Level 104 mmol/L (98-107) Carbon Dioxide Level 27 mmol/L (21-32) Anion Gap 10 (6-14) Blood Urea Nitrogen 17 mg/dL (8-26) Creatinine 1.3 mg/dL (0.7-1.3) Estimated GFR (Cockcroft-Gault) 74.0 BUN/Creatinine Ratio 13 (6-20) Glucose Level 121 mg/dL (70-99) Calcium Level 9.9 mg/dL (8.5-10.1) Total Bilirubin 0.4 mg/dL (0.2-1.0) Aspartate Amino Transf (AST/SGOT) 15 U/L (15-37) Alanine Aminotransferase (ALT/SGPT) 15 U/L (16-63) Alkaline Phosphatase 91 U/L (46-116) Total Protein 8.2 g/dL (6.4-8.2) Albumin 4.0 g/dL (3.4-5.0) Albumin/Globulin Ratio 1.0 (1.0-1.7) Laboratory Tests Test 01/16/19 06:50 01/16/19 10:30 White Blood Count 10.3 x10^3/uL (4.0-11.0) Red Blood Count 4.51 x10^6/uL (4.30-5.70) Hemoglobin 15.2 g/dL (13.0-17.5) Hematocrit 44.2 % (39.0-53.0) Mean Corpuscular Volume 98 fL (79-100) Mean Corpuscular Hemoglobin 34 pg (25-35) Mean Corpuscular Hemoglobin Concent 34 g/dL (31-37) Red Cell Distribution Width 13.2 % (11.5-14.5) Platelet Count 245 x10^3/uL (140-400) Neutrophils (%) (Auto) 65 % (31-73) Lymphocytes (%) (Auto) 27 % (24-48) Monocytes (%) (Auto) 4 % (0-9) Eosinophils (%) (Auto) 3 % (0-3) Basophils (%) (Auto) 1 % (0-3) Neutrophils # (Auto) 6.7 x10^3/uL (1.8-7.7) Lymphocytes # (Auto) 2.8 x10^3/uL (1.0-4.8) Monocytes # (Auto) 0.4 x10^3/uL (0.0-1.1) Eosinophils # (Auto) 0.4 x10^3/uL (0.0-0.7) Basophils # (Auto) 0.1 x10^3/uL (0.0-0.2) Sodium Level 141 mmol/L (136-145) Potassium Level 3.9 mmol/L (3.5-5.1) Chloride Level 104 mmol/L (98-107) Carbon Dioxide Level 27 mmol/L (21-32) Anion Gap 10 (6-14) Blood Urea Nitrogen 17 mg/dL (8-26) Creatinine 1.3 mg/dL (0.7-1.3) Estimated GFR (Cockcroft-Gault) 74.0 BUN/Creatinine Ratio 13 (6-20) Glucose Level 121 mg/dL (70-99) Calcium Level 9.9 mg/dL (8.5-10.1) Total Bilirubin 0.4 mg/dL (0.2-1.0) Aspartate Amino Transf (AST/SGOT) 15 U/L (15-37) Alanine Aminotransferase (ALT/SGPT) 15 U/L (16-63) Alkaline Phosphatase 91 U/L (46-116) Total Protein 8.2 g/dL (6.4-8.2) Albumin 4.0 g/dL (3.4-5.0) Albumin/Globulin Ratio 1.0 (1.0-1.7) Assessment/Plan Assessment/Plan IMP HTN-IMPROVED ALLERGY TO VASILIY-I PANCREATITIS-AGREE PROB RELATED TO PKD ADPKD-UA NEG FOR RBC OR PROTEIN PLAN BP CONTROL UNFORTUNATELY CANNOT USE VASILIY-I OR ARB AGREE WITH NORVASC. CA CHANNEL JAY A GOOD SECOND CHOICE ENC PO TOLERATED WILL NEED OP F/U ON DISCHARGE ELIF PASTRANA MD Jan 16, 2019 12:08
--- NOTE | 2019-01-16 12:18 | PDOC3 ---
Discharge Summary Date of Admission: Jan 11, 2019 Date of Discharge: Jan 16, 2019 Follow-Up: 3-5 days Admitting Diagnosis comment: Assessment/Plan Assessment/Plan A/P: Intractable nausea and vomiting - likely 2/2 pancreatitis, Acute pancreatitis - etiology unclear, though PCKD and smoking status does increase his risk a bit. Non-drinker. Will check RUQ US, check Triglycerides, TSH. Consult GI Leukocytosis - likely 2/2 pancreatitis, no signs of necrosis. Will monitor as he does meet SIRS criteria I do not feel he is septic PCKD - his father had dx, he has been diagnosed, though he does not have insurance and has not seen nephrology or had HTN. HTN - no formal diagnosis. High risk with being and having PCKD he likely does have HTN. Lisinopril caused a bad reaction. Amlodipine may be a better choice for him. Treated for HTN urgency in ED, however with his pain cont rolled his BP has normalized Smoker - nicotine patch offered, counseled on cessation Pancreatitis, Pancreatic body and tail lesion too small to characterize. Differential diagnoses includes side branch intraductal papillary mucinous neoplasm or cysts. Follow-up MRI/MRCP in 6 months recommended. Bilateral polycystic kidneys. Some of the cysts a complicated with internal proteinaceous debris or blood products. hypertension, uncontrolled plan -- MRCP and CA19-9 pending. FEN - NPO PPX - SCDs FULL CODE Dispo - was initially admitted to ICU 2/2 uncontrolled HTN, ok to d/c telemetry and downgrade to med/surg. Likely 2 midnights. UROLOGY CONSULT inc norvasc to 5 mg bid CA19-9 nephrology consult see as out pt soon 33 min pt exam, chart review d/c planning , > 50% of time spent with exam, chart review, pt care coordination Vitals Vitals Vital Signs Date Time Temp Pulse Resp B/P (MAP) Pulse Ox O2 Delivery O2 Flow Rate FiO2 01/16/19 09:24 111 135/89 (104) 01/16/19 07:00 98.0 16 98 Room Air 98.0 Physical Exam General: Alert, Oriented X3, Cooperative, No acute distress Heart: Regular rate, Normal S1, Normal S2 Lungs: Clear Abdomen: Normal bowel sounds, Soft, No hepatosplenomegaly, No masses, Other (RUQ and LUQ tender) Extremities: No clubbing, No cyanosis, No edema, Normal pulses, No tenderness/swelling Skin: No rashes, No breakdown, No significant lesion Brief Hospital Course Mr. Rowell is a 38 old [sex] who presented with [acute pancreatitis ] CONDITION AT DISCHARGE: Improved Discharge Medications Current Medications Hydralazine HCl (Apresoline) 50 mg TID PO Last administered on 01/16/19at 07:51; Start 01/11/19 at 14:00 Nicotine (Nicoderm Cq 21mg) 1 patch DAILY TD Last administered on 01/16/19at 07:51; Start 01/11/19 at 11:00 Ondansetron HCl (Zofran) 4 mg PRN Q6HRS PRN IV NAUSEA/VOMITING; Start 01/11/19 at 10:30 Morphine Sulfate (Morphine Sulfate) 2 mg PRN Q1HR PRN IV PAIN Last administered on 01/12/19at 01:13; Start 01/11/19 at 10:30 Oxycodone/ Acetaminophen (Percocet 5/325) 1 tab PRN Q4HRS PRN PO MILD PAIN, 1ST CHOICE Last administered on 01/14/19at 10:50; Start 01/11/19 at 10:30 Bisacodyl (Dulcolax Supp) 10 mg PRN DAILY PRN [place] CONSTIPATION; Start 01/11/19 at 10:30 Amlodipine Besylate (Norvasc) 5 mg DAILY PO Last administered on 01/13/19at 08:58; Start 01/11/19 at 11:00; Stop 01/13/19 at 10:25; Status DC Nitroglycerin (Nitro-Bid Oint) 1 inch PRN Q6HRS PRN TP HTN, SBP >160 2ND CHOICE; Start 01/11/19 at 11:00 Hydralazine HCl (Apresoline Inj) 10 mg PRN Q4HRS PRN IVP ELEVATED BP, 1ST CHOICE Last administered on 01/15/19at 23:47; Start 01/11/19 at 11:00 Pantoprazole Sodium (PROTONIX VIAL for IV PUSH) 40 mg DAILYAC IVP Last administered on 01/13/19at 05:56; Start 01/12/19 at 07:30; Stop 01/13/19 at 15:17; Status DC Sodium Chloride 1,000 ml @ 75 mls/hr [id number] IV Last administered on 01/13/19at 05:56; Start 01/11/19 at 14:45 Amlodipine Besylate (Norvasc) 5 mg BID PO ; Start 01/13/19 at 10:30; Status Cancel Amlodipine Besylate (Norvasc) 5 mg BID PO Last administered on 01/16/19at 07:51; Start 01/13/19 at 21:00 Pantoprazole Sodium (Protonix) 40 mg DAILYAC PO Last administered on 01/16/19at 05:15; Start 01/14/19 at 07:30 Active Scripts Active Reported NICODERM CQ 21mg (Nicotine) 1 Each Patch.td24 1 Patch TP DAILY Metoprolol Tartrate 50 Mg Tablet 1 Tab PO BID Hydralazine Hcl 50 Mg Tablet 1 Tab PO TID Vital Signs Vital Signs Date Time Temp Pulse Resp B/P (MAP) Pulse Ox O2 Delivery O2 Flow Rate FiO2 01/16/19 11:00 98.4 71 16 124/91 (102) 99 Room Air 98.4 Labs Laboratory Tests Test 01/16/19 06:50 01/16/19 10:30 White Blood Count 10.3 x10^3/uL (4.0-11.0) Red Blood Count 4.51 x10^6/uL (4.30-5.70) Hemoglobin 15.2 g/dL (13.0-17.5) Hematocrit 44.2 % (39.0-53.0) Mean Corpuscular Volume 98 fL (79-100) Mean Corpuscular Hemoglobin 34 pg (25-35) Mean Corpuscular Hemoglobin Concent 34 g/dL (31-37) Red Cell Distribution Width 13.2 % (11.5-14.5) Platelet Count 245 x10^3/uL (140-400) Neutrophils (%) (Auto) 65 % (31-73) Lymphocytes (%) (Auto) 27 % (24-48) Monocytes (%) (Auto) 4 % (0-9) Eosinophils (%) (Auto) 3 % (0-3) Basophils (%) (Auto) 1 % (0-3) Neutrophils # (Auto) 6.7 x10^3/uL (1.8-7.7) Lymphocytes # (Auto) 2.8 x10^3/uL (1.0-4.8) Monocytes # (Auto) 0.4 x10^3/uL (0.0-1.1) Eosinophils # (Auto) 0.4 x10^3/uL (0.0-0.7) Basophils # (Auto) 0.1 x10^3/uL (0.0-0.2) Sodium Level 141 mmol/L (136-145) Potassium Level 3.9 mmol/L (3.5-5.1) Chloride Level 104 mmol/L (98-107) Carbon Dioxide Level 27 mmol/L (21-32) Anion Gap 10 (6-14) Blood Urea Nitrogen 17 mg/dL (8-26) Creatinine 1.3 mg/dL (0.7-1.3) Estimated GFR (Cockcroft-Gault) 74.0 BUN/Creatinine Ratio 13 (6-20) Glucose Level 121 mg/dL (70-99) Calcium Level 9.9 mg/dL (8.5-10.1) Total Bilirubin 0.4 mg/dL (0.2-1.0) Aspartate Amino Transf (AST/SGOT) 15 U/L (15-37) Alanine Aminotransferase (ALT/SGPT) 15 U/L (16-63) Alkaline Phosphatase 91 U/L (46-116) Total Protein 8.2 g/dL (6.4-8.2) Albumin 4.0 g/dL (3.4-5.0) Albumin/Globulin Ratio 1.0 (1.0-1.7) Laboratory Tests Test 01/16/19 06:50 01/16/19 10:30 White Blood Count 10.3 x10^3/uL (4.0-11.0) Red Blood Count 4.51 x10^6/uL (4.30-5.70) Hemoglobin 15.2 g/dL (13.0-17.5) Hematocrit 44.2 % (39.0-53.0) Mean Corpuscular Volume 98 fL (79-100) Mean Corpuscular Hemoglobin 34 pg (25-35) Mean Corpuscular Hemoglobin Concent 34 g/dL (31-37) Red Cell Distribution Width 13.2 % (11.5-14.5) Platelet Count 245 x10^3/uL (140-400) Neutrophils (%) (Auto) 65 % (31-73) Lymphocytes (%) (Auto) 27 % (24-48) Monocytes (%) (Auto) 4 % (0-9) Eosinophils (%) (Auto) 3 % (0-3) Basophils (%) (Auto) 1 % (0-3) Neutrophils # (Auto) 6.7 x10^3/uL (1.8-7.7) Lymphocytes # (Auto) 2.8 x10^3/uL (1.0-4.8) Monocytes # (Auto) 0.4 x10^3/uL (0.0-1.1) Eosinophils # (Auto) 0.4 x10^3/uL (0.0-0.7) Basophils # (Auto) 0.1 x10^3/uL (0.0-0.2) Sodium Level 141 mmol/L (136-145) Potassium Level 3.9 mmol/L (3.5-5.1) Chloride Level 104 mmol/L (98-107) Carbon Dioxide Level 27 mmol/L (21-32) Anion Gap 10 (6-14) Blood Urea Nitrogen 17 mg/dL (8-26) Creatinine 1.3 mg/dL (0.7-1.3) Estimated GFR (Cockcroft-Gault) 74.0 BUN/Creatinine Ratio 13 (6-20) Glucose Level 121 mg/dL (70-99) Calcium Level 9.9 mg/dL (8.5-10.1) Total Bilirubin 0.4 mg/dL (0.2-1.0) Aspartate Amino Transf (AST/SGOT) 15 U/L (15-37) Alanine Aminotransferase (ALT/SGPT) 15 U/L (16-63) Alkaline Phosphatase 91 U/L (46-116) Total Protein 8.2 g/dL (6.4-8.2) Albumin 4.0 g/dL (3.4-5.0) Albumin/Globulin Ratio 1.0 (1.0-1.7) Allergies Allergies Coded Allergies Type Severity Reaction Last Updated Verified lisinopril Allergy Severe lip swelling 01/11/19 Yes Disposition/Orders: D/C to Home Patient Instructions d/c planning 33 min FERDINAND GARRETT MD Jan 16, 2019 12:18
[2019-01-16] MEDS ORDERED: PANT40TA77 PO (12:20)
[2019-01-16] MEDS ORDERED: AMLO5TAB10 PO (12:20)
--- NOTE | 2019-01-16 12:22 | DISCH ---
DISCHARGE INSTRUCTIONS Condition on Discharge Condition on Discharge: Stable Activity After Discharge Activity Instructions for Disc: Activity as tolerated Lifting Instructions after Dis: No heavy lifting, No pulling or pushing Driving Instructions after Dis: Do not drive today Diet after Discharge Diet after Discharge: GI Soft Checks after Discharge Checks after discharge: Check blood press - daily Contacting the DR. after DC Call your doctor for: If your condition worsens Follow-Up Follow up with: nephrology 2 weeks Follow Up With: GI 2-4 WEEKS FERDINAND GARRETT MD Jan 16, 2019 12:22
--- NOTE | 2019-01-16 13:08 | NUR ---
Discharged to home ambulatory accompanied by spouse, to follow up with [facility] for HTN, suggested to purchase BP cuff for readings to monitor BP status, copy of cardiac diet also supplied
== END 2019-01-16 13:11 | disposition home or self-care (01) | DRG 439 ==
LOC: 1 WEST ICU 08:00 → 4 NORTH 15:10
PROVIDERS: ADMIT Internal Medicine; ATTEND Internal Medicine
DX: K85.90 Acute pancreatitis without necrosis or infection, unspecified (principal); Q61.2 Polycystic kidney, adult type; R65.10 Systemic inflammatory response syndrome (SIRS) of non-infectious origin without acute organ dysfunction; F12.90 Cannabis use, unspecified, uncomplicated; F17.210 Nicotine dependence, cigarettes, uncomplicated; I12.9 Hypertensive chronic kidney disease with stage 1 through stage 4 chronic kidney disease, or unspecified chronic kidney disease; K59.00 Constipation, unspecified; N40.0 Benign prostatic hyperplasia without lower urinary tract symptoms; I16.0 Hypertensive urgency; N18.9 Chronic kidney disease, unspecified; Z80.0 Family history of malignant neoplasm of digestive organs; Z82.49 Family history of ischemic heart disease and other diseases of the circulatory system; Z85.46 Personal history of malignant neoplasm of prostate; Z82.71 Family history of polycystic kidney; Z88.8 Allergy status to other drugs, medicaments and biological substances
CPT/HCPCS: 36415; 74181; 76700; 80048; 80053; 80061; 81001; 83690; 84443; 85025; 86301; C9113; J0360; J2270; J7030; G0378